=== PATIENT | female | born 1945 | race Caucasian/White ===

== ENCOUNTER 2020-10-25 16:49 | Inpatient (IN) | payer MEDICARE, SELFPAY ==
[2020-10-25 16:50] VITALS: BP 130/54; PULSE 74; RESP 20; TEMP 37; O2SAT 85; BMI 13.6
[2020-10-25 17:22] VITALS: O2SAT 95
--- NOTE | 2020-10-25 17:24 | XR_ITS ---
PROCEDURE INFORMATION: Exam: XR Chest Exam date and time: 10/25/2020 5:24 PM Age: 75 years old Clinical indication: Cough and shortness of breath; Smoker's cough; Patient HX: Cough, shortness of breath for 3 days. Smoker. ; Additional info: SOB TECHNIQUE: Imaging protocol: XR of the chest. Views: 1 view. COMPARISON: No relevant prior studies available. FINDINGS: Lungs: Hyperinflation. There is a patchy consolidation in the right base. Pleural spaces: Unremarkable. No pleural effusion. No pneumothorax. Heart/Mediastinum: Postsurgical changes in the heart and mediastinum. Bones/joints: Unremarkable. IMPRESSION: Findings suggest right basilar pneumonia
--- NOTE | 2020-10-25 17:24 | ECG_ITS ---
APPROVED REPORT Exam: Resting ECG HR:79 bpm ECG Measurements Heart Rate 79 AXES NH 114 P 83 QRSd 94 QRS 16 QT 364 T 128 QTc 417 Conclusion Normal sinus rhythm Possible Left atrial enlargement Septal infarct, age undetermined ST & T wave abnormality, consider lateral ischemia Abnormal ECG Electronically signed by : Nigel Argueta MD 10/27/2020 12:09:59
[2020-10-25 17:34] LABS: Coronavirus 19, PCR Not Detected (NotDetected); Influenza A, PCR Not Detected (NotDetected); Influenza B, PCR Not Detected (NotDetected)
[2020-10-25 17:36] LABS: Basophils % 0.3 % (0.1-2.0); Eosinophils % 0.1 % (0.1-12.0); Hematocrit 41.3 % (37.0-47.0); Hemoglobin 13.1 g/dL (12.2-16.2); Lymphocytes # 0.6 K/mm3 (0.7-4.5); Lymphocytes % 6.1 % (10-50); Mean Corpuscular HGB Conc 31.8 g/dL (31.8-35.4); Mean Corpuscular Volume 97.4 fl (81-99); Mean Platelet Volume 8.4 fl (7.4-10.4); Monocytes # 0.5 K/mm3 (0.1-1.0); Monocytes % 4.6 % (1.7-9.3); Neutrophils # 9.2 K/mm3 (1.8-7.8); Neutrophils % 88.9 % (37.0-80.0); Platelet Count 257 K/mm3 (142-424); Red Blood Count 4.24 M/mm3 (4.20-5.40); Red Cell Distribution Width 12.7 % (11.5-17.5); White Blood Count 10.4 K/mm3 (4.8-10.8)
[2020-10-25 17:38] LABS: Chloride 95 mmol/L (98-107); MANUAL DIFFERENTIAL MANUAL DIFFERENTIAL (MANUAL DIFF); Potassium 3.9 mmoL/L (3.5-5.1); Sodium 132 mmol/L (136-145)
[2020-10-25 17:40] LABS: Blood Urea Nitrogen 21 mg/dl (7-17); Creatinine Clearance Estimated 26 mL/min (50-200); Estimated Glomerular Filt Rate 120 ml/min (>60); GFR (African American) 145 ML/MIN (>60)
[2020-10-25 17:41] LABS: Alanine Aminotransferase 14 U/L (12-78); Albumin Level 3.6 g/dl (3.5-5.0); Albumin/Globulin Ratio 1.4 (1.1-1.8); Alkaline Phosphatase 65 U/L (38-126); Anion Gap 12.9 mEq/L (5-15); Aspartate Amino Transferase 23 U/L (14-36); Bilirubin,Total 0.7 mg/dl (0.2-1.3); Carbon Dioxide 28 mmol/L (22.0-30.0); Globulin 2.5 g/dL (1.3-3.2); Glucose 147 mg/dl (74-100); Total Protein,Serum 6.1 g/dl (6.3-8.2)
[2020-10-25 17:47] LABS: Lactic Acid 2.4 mmol/L (0.7-2.1)
[2020-10-25 17:56] LABS: Troponin I < 0.01 ng/ml (0.00-0.034)
[2020-10-25 18:14] LABS: Hypochromasia 1+; Lymphocytes % 6 % (10-50); Macrocytosis 1+; Neutrophils % 82 % (42-76); Platelet Estimate Normal; Total Cells Counted 100
--- NOTE | 2020-10-25 18:47 | PC.NURSE ---
SPOKE WITH PT'S FAMILY, THEY WILL ATTEMPT TO OBTAIN MEDICATION LIST
--- NOTE | 2020-10-25 19:13 | HMH.EDGENADL ---
ED Disposition Clinical Impression: Community acquired pneumonia Qualifiers: Laterality: right Lung location: lower lobe of lung Qualified Code(s): J18.9 - Pneumonia, unspecified organism Respiratory failure with hypoxia Qualifiers: Chronicity: acute Qualified Code(s): J96.01 - Acute respiratory failure with hypoxia Disposition: Admitted As Inpatient Condition on Discharge: Serious Referrals: Marnie Lilly APRN [Primary Care Provider] - - Critical Care Critical Care Time: No Attestation: On 10/25/20, the high probability of a clinically significant, sudden or life threatening deterioration of the following system(s) required my full and direct attention, intervention and personal management. The time I documented below is in addition to time spent performing reported procedures but includes the following listed in this critical care notation. Medical Decision Making - David Inquiry Pt receiving controlled substance: No Vital Signs: 10/25/20 16:50 10/25/20 17:22 Temperature 98.6 F Temperature Source Oral Pulse Rate [Radial] 74 Respiratory Rate 20 Blood Pressure [Right Arm] 130/54 L Blood Pressure Mean [Right Arm] 79 Blood Pressure Position [Right Arm] Sitting 02 Sat by Pulse Oximetry 85 L 95 Oxygen Delivery Method Room Air Nasal Cannula Oxygen Flow Rate (LPM) 3 - Lab Data Lab Results 10/25/20 16:55: SARS-CoV-2 (PCR) Not detected, Influenza A Untype (PCR) Not detected, Influenza Type B (PCR) Not detected 10/25/20 17:10: WBC 10.4, RBC 4.24, Hgb 13.1, Hct 41.3, MCV 97.4, MCH 31.0, MCHC 31.8, RDW 12.7, Plt Count 257, MPV 8.4, Neut % (Auto) 88.9 H, Lymph % (Auto) 6.1 L, Tyler % (Auto) 4.6, Eos % (Auto) 0.1, Baso % (Auto) 0.3, Neut # (Auto) 9.2 H, Lymph # (Auto) 0.6 L, Tyler # (Auto) 0.5, Eos # (Auto) 0.0, Baso # (Auto) 0.0, Total Counted 100, Neutrophils % (Manual) 82 H, Band Neutrophils % 12.0 H, Lymphocytes % (Manual) 6 L, Platelet Estimate Normal, Hypochromasia 1+, Macrocytosis 1+ 10/25/20 17:10: Sodium 132 L, Potassium 3.9, Chloride 95 L, Carbon Dioxide 28, Anion Gap 12.9, BUN 21 H, Creatinine 0.50 L, Estimated Creat Clear 26, Estimated GFR 120, Est GFR ( Amer) 145, Glucose 147 H, Calcium 9.0, Total Bilirubin 0.7, AST 23, ALT 14, Alkaline Phosphatase 65, Troponin I < 0.01, Total Protein 6.1 L, Albumin 3.6, Globulin 2.5, Albumin/Globulin Ratio 1.4 10/25/20 17:10: Lactate 2.4 H Result diagrams: 10/25/20 17:10 10/25/20 17:10 Orders (Tests/Meds): ED MEDICATIONS Generic Name Dose Route Start Last Admin Trade Name Freq PRN Reason Stop Dose Admin Ceftriaxone Sodium 1 gm/ 50 mls @ 100 mls/hr 10/25/20 19:30 10/25/20 19:34 Sodium Chloride IV 11/08/20 19:29 100 mls/hr Q24H NITZA Administration Azithromycin 500 mg/ Sodium 250 mls @ 250 mls/hr 10/25/20 19:30 Chloride IV 11/08/20 19:29 Q24H NITZA Sodium Chloride 3 ml 10/25/20 19:31 Sodium Chloride 3% 15ml Neb IH 11/24/20 19:30 ONCE PRN INDUCE SPUTUM COLLECTION ORDERS Category Date Time Status Troponin I Q3H Lab 10/25/20 20:30 Ordered Troponin I Q3H Lab 10/25/20 23:30 Ordered Urinalysis and Microscopic Stat Lab 10/25/20 17:24 Ordered Blood Culture Stat Micro 10/25/20 17:10 Received Sputum Culture & Gram Stain Stat Micro 10/25/20 19:31 Ordered - Radiology Data #1 Image(s): Chest Image Reviewed: Yes I reviewed the patient's radiology image, Yes I have reviewed radiologist's interpretation PROCEDURE INFORMATION: Exam: XR Chest Exam date and time: 10/25/2020 5:24 PM Age: 75 years old Clinical indication: Cough and shortness of breath; Smoker's cough; Patient HX: Cough, shortness of breath for 3 days. Smoker. ; Additional info: SOB TECHNIQUE: Imaging protocol: XR of the chest. Views: 1 view. COMPARISON: No relevant prior studies available. FINDINGS: Lungs: Hyperinflation. There is a patchy consolidation in the right base. Pleural spaces: Unremarkable. No pleur
--- NOTE | 2020-10-25 19:37 | PC.NURSE ---
Pagjann Canseco at this time
--- NOTE | 2020-10-25 19:59 | PC.NURSE ---
Pt's daughter called for an update, let her know that pt was admitted for PNA but wanting to sign out AMA. Dr. Child states pt can leave AMA but needs someone to pick here up. Daughter states OK thank you .
[2020-10-25 20:54] VITALS: BMI 12.0
--- NOTE | 2020-10-25 20:54 | PC.NURSE ---
PT ARRIVED TO FLOOR VIA STRETCHER FROM ED W/STAFF AT 2052
[2020-10-25 21:12] VITALS: O2SAT 94
[2020-10-25 21:14] LABS: Troponin I < 0.01 ng/ml (0.00-0.034)
[2020-10-25 21:29] LABS: Reflex Lactic Add Lactic Reflex
[2020-10-25 21:34] VITALS: BP 124/70; PULSE 73; RESP 18; TEMP 36.8; O2SAT 98
[2020-10-26] VITALS (13 sets, daily range): BP systolic 88–163; BP diastolic 50–74; PULSE 53–150; RESP 17–22; TEMP 36.6–36.8; O2SAT 90–99; BMI 12.0; BMI 12.1
--- NOTE | 2020-10-26 04:14 | PC.NURSE ---
Patient is A&Ox4. She remains on 4LNC. She ambulates to the bathroom independently. Scattered rhonchi noted throughout. No acute changes this shift. VSS, call light within reach, will continue to monitor.
--- NOTE | 2020-10-26 06:10 | ECG_ITS ---
APPROVED REPORT Exam: Resting ECG HR:162 bpm ECG Measurements Heart Rate 162 AXES QRSd 94 QRS -7 QT 284 T 198 QTc 466 Conclusion Atrial fibrillation with rapid ventricular response Septal infarct, age undetermined Marked ST abnormality, possible inferior subendocardial injury Marked ST abnormality, possible anterior subendocardial injury Abnormal ECG Electronically signed by : Nigel Argueta MD 10/27/2020 12:08:32
--- NOTE | 2020-10-26 07:25 | PC.NURSE ---
At approximately 0600 this RN received a call from the tree warden that the patient was complaining of chest pain. An EKG was obtained per protocol vitals. notified.
--- NOTE | 2020-10-26 08:09 | HMH.HP ---
*Admission Date: 10/25/20 <MahajanMerlynRina - 10/26/20 08:35> *Chief complaint: SOB; weakness <Merlyn Mahajanhy 10/26/20 08:35> *History of present illness: Ms. Hassan is a 75-year-old female who presented to [facility] with shortness of breath, weakness, and some altered mental status.Family states that she has been confused with a cough congestion shortness of breath and minimal p.o. intake. O2 sats at home were on 80%. She was using her 's oxygen as needed.She is noted to have been vaccinated against COVID-19. She had talked with her PCP and started on cefdinir 3 days ago . She did not get any better and thus her family brought her to the ER via ambulance.The emergency room She was started on Rocephin and Zithromax. Patient has a history of heart disease, Arthritis, Anxiety, Depression, and irregular heartbeat.She has been both on Cardizem and metoprolol. Chest x-ray on admission suggested right basilar pneumonia. Lactate originally was at 2.4 and is now 2. Upon awakening this morning patient describes anterior chest discomfort with shortness of breath.. She could feel her heart pounding.She was given 120 mg of Cardizem p.o. The chest pain did continue. Monitor showing atrial fib with rapid ventricular response in the 150s. She was given her metoprolol and 1/2 inch of Nitropaste was placed on her chest. She declined the Ativan because she says it knocks her out. Her chest pain did improve. <Rina Mahajan - 10/26/20 08:35> [facility] History Medical History: Reports:: Anxiety, Atrial Fibrillation, Chronic Obstructive Pulmonary Disease (COPD), Depression, Hypertension, Palpitations Denies:: Cancer, Diabetes Mellitus Type 1, Diabetes Mellitus Type 2, Gastroesophageal Reflux Disease(GERD), MRSA, Seizures <Rina Mahajan 10/26/20 08:35> *Have you ever received a pneumonia vaccine?: Yes <Rina Mahajan 10/26/20 08:35> *Have you received a flu vaccine this season?: Yes <Rina Mahajan 10/26/20 08:35> Other Medical History: Reports: Arthritis, Hypothyroidism, Thyroid Disease <Rina Mahajan 10/26/20 08:35> Other Surgeries: Yes: No Previous Surgery <Rina Mahajan 10/26/20 08:35> Amputation: No <Rina Mahajan 10/26/20 08:35> Fractures: No <Rina Mahajan 10/26/20 08:35> - *Social History Smoking Status: Current every day smoker <Rina Mahajan 10/26/20 08:35> Tobacco Type: cigarettes <Rina Mahajan 10/26/20 08:35> # Packs/Day (cigarettes): 1 <Rina Mahajan 10/26/20 08:35> Alcohol Intake: never <Rina Mahajan 10/26/20 08:35> *Occupational Status:: retired <Rina Mahajan 10/26/20 08:35> Housing: house <Merlyn Mahajanhy 10/26/20 08:35> Household Members: family <Rina Mahajan 10/26/20 08:35> *Travel in the last 8 weeks: None <Rina Mahajan 10/26/20 08:35> Family Hx:: Coronary Artery Disease <Merlyn Mahajanhy 10/26/20 08:35> Review of Systems - Constitutional Reports lack of energy, Reports weight loss <Merlyn Mahajanhy 10/26/20 08:35> - Eyes Denies change in vision <Merlyn Mahajanhy 10/26/20 08:35> - ENT Reports dry mouth, Denies dizziness, Denies ear pain, Denies headache(s), Denies nasal congestion <Merlyn Mahajanhy 10/26/20 08:35> - *Cardiovascular Reports chest pain, Reports leg pain with activity, Reports shortness of breath, Reports irregular heart rhythm, Reports rapid, pounding, or irregular heartbeat, Denies leg swelling <Merlyn Mahajanhy 10/26/20 08:35> - *Respiratory Reports cough, Reports shortness of breath, Denies coughing up blood <Merlyn Mahajanhy 10/26/20 08:35> - *Gastrointestinal Reports nausea, Reports vomiting, Denies abdominal pain, Denies constipation, Denies loose stools <Merlyn Mahajanhy 10/26/20 08:35> - *Genitourinary Denies difficulty urinating <Rina Mahajan 10/26/20 08:35> - *Musculoskeletal Reports joint pain, Reports back pain, Reports deformity, Reports muscle weakness <Rina Mahajan 10/26/20 08:35> - *Neurologic Report
--- NOTE | 2020-10-26 08:42 | ECG_ITS ---
APPROVED REPORT Exam: Resting ECG HR:60 bpm ECG Measurements Heart Rate 60 AXES ME 86 P 60 QRSd 96 QRS 6 QT 428 T 98 QTc 428 Conclusion Sinus rhythm with short ME Anteroseptal infarct, age undetermined Abnormal ECG Electronically signed by : Nigel Argueta MD 10/27/2020 12:08:00
[2020-10-26 09:20] LABS: Thyroid Stimulating Hormone 0.63 uIU/mL (0.465-4.68)
--- NOTE | 2020-10-26 09:46 | P.CONPHA_ITS ---
[facility] Pharmacy VTE Monitoring - Patient Demographics Admission date: 10/25/20 Report Date: 10/26/20 Time: 09:47 Allergies/Adverse Reactions: Patient Allergies Penicillins [PENICILLINS] Allergy (Mild, Verified 10/25/20 22:00) Rash Height: 1.6 m Weight: 30.844 kg Patient Problems: Current Active Problems Community acquired pneumonia (Acute) Respiratory failure with hypoxia (Acute) Atrial fibrillation with rapid ventricular response (Acute) Chest pain (Acute) Hypothyroidism (Acute) - VTE Risk Labs: VTE Related Lab Results Hgb 13.1 g/dL (12.2-16.2) 10/25/20 17:10 Hct 41.3 % (37.0-47.0) 10/25/20 17:10 Plt Count 257 K/mm3 (142-424) 10/25/20 17:10 BUN 21 mg/dl (7-17) H 10/25/20 17:10 Creatinine 0.50 mg/dl (0.52-1.04) L 10/25/20 17:10 Estimated Creat Clear 26 mL/min (50-200) 10/25/20 17:10 VTE Score: 2 - Prophylaxis VTE Prophylaxis Ordered?: Yes Types of VTE Prophylaxis: TEDS Knee High Location of Applied Device: Bilateral Lower Extremeties
--- NOTE | 2020-10-26 11:29 | HMH.PHAINT ---
MEDICATION RECONCILIATION COMPLETED USING PHARMACY MED LIST AND PATIENT INTERVIEW.
--- NOTE | 2020-10-26 14:33 | HMH.CNCARD ---
History of Present Illness Consult date: 10/26/20 Requesting physician: Tutu Canseco Consult reason: chest pain, atrial fibrillation Chief complaint: chest pain History of present illness: This is a 75-year-old white female who presented to [facility] with shortness of breath, weakness and altered mental status per her family. The patient has been confused lately with a cough, congestion and shortness of breath. Her p.o. intake has been very minimal and she just did not feel well. Her oxygen saturations at home were around 80% and the patient was using her 's supplemental oxygen at home. She talked to her primary care provider approximately 3 days ago and was started on cefdinir but she did not get any better and her family called EMS to have her transported to the hospital. The patient was admitted to the hospital secondary to right basilar pneumonia. This morning the patient had sudden onset of left-sided chest pain. She describes this as a pressure sensation and her heart was racing and pounding. The patient states that she just did not feel well. This radiated to her jaw and her abdomen. It was associated with shortness of breath. She was found to be in atrial fibrillation with RVR and her heart rate around 150s. The patient was given a dose of diltiazem 120 mg p.o. with no improvement in her symptoms. She was then given some metoprolol and half inch Nitropaste and her symptoms resolved. The patient states that she has had a few episodes of chest pain since then but nothing near as bad as it was. Of note she does have a history of coronary artery disease with coronary artery bypass grafting in either 2009 or 2011 per the patient's report. She does have a history of atrial fibrillation and she takes oral Cardizem and metoprolol at home. She is on Plavix due to her coronary artery disease and is on no long-term anticoagulation that she is aware of despite her [id number] score of 5. She states that she has been short of breath at home as well. She denies any lower extremity edema. She denies any nausea, vomiting, PND or orthopnea. [facility] History I have reviewed the patient's past medical history: Yes Medical History: Reports:: Anxiety, Atrial Fibrillation, Chronic Obstructive Pulmonary Disease (COPD), Coronary Artery Disease, Depression, Hypertension, Palpitations Denies:: Cancer, Cerebrovascular Accident, Diabetes Mellitus Type 1, Diabetes Mellitus Type 2, Gastroesophageal Reflux Disease(GERD), MRSA, Seizures *Have you ever received a pneumonia vaccine?: Yes *Have you received a flu vaccine this season?: Yes Other Medical History: Reports: Arthritis, Hypothyroidism, Thyroid Disease Other Surgeries: Yes: No Previous Surgery, Cardiac Catheterization, Open Heart Surgery Amputation: No Fractures: No - *Social History Smoking Status: Current every day smoker Tobacco Type: cigarettes # Packs/Day (cigarettes): 1 Alcohol Intake: never *Occupational Status:: retired Housing: house Household Members: family *Travel in the last 8 weeks: None - Psychiatric History Pschychiatric History:: Reports:: Anxiety, Depression Family Hx:: Coronary Artery Disease Meds Home Medications Medication Instructions Recorded Confirmed Type Clopidogrel Bisulfate [Plavix 75mg 75 mg PO HS 10/25/20 10/25/20 History Tab] Gabapentin 300 mg PO DIRECTED 10/25/20 10/26/20 History LORazepam [Lorazepam 1mg Tablet] 0.25 mg PO HSP PRN 10/25/20 10/26/20 History Levothyroxine Sodium 75 mcg PO DAILY 10/25/20 10/25/20 History [Levothyroxine 75mcg (0.075mg) Tab] Metoprolol Tartrate [Lopressor 100 100 mg PO BID 10/25/20 10/26/20 History mg Tablets] Oxycodone HCl/Acetaminophen 1 each PO Q6H 10/25/20 10/25/20 History [Oxycodone-Acetaminophen 10-325] dilTIAZem HCL [Cardizem ER 300mg 300 mg PO DAILY 10/25/20 10/25/20 History cap] Escitalopram Oxalate 5 mg PO DAILY 10/26/20 10/26/20 History Allergies Allerg
--- NOTE | 2020-10-26 14:42 | CA_ITS ---
APPROVED REPORT EXAM: Comprehensive 2D, Doppler, and color-flow Echocardiogram Automatic Lathe Setter: Nirmala Luong RVT Ht: 5 ft 2 in Wt: 68lbs BSA: 1.21 BP: 125/55 mmHg Indications: CP,A-FIB,PNEUMONIA,CAD,CABG,COPD,HTN,SOA TDS-PT BODY HABITUS 2D Dimensions LVOT 1.99 cm (M/F) 1.5-2.5 LA Volume 25.30 mL LA Volume Index 21.08 mL/m2 (M/F) 16-34 M-Mode Dimensions LA Diam 3.70 cm (1.9-4.0) LVDd 3.91 cm (3.5-5.7) Ao Diam 2.64 cm (2.0-3.7) LVDs 2.64 cm (3.5-5.7) IVSd 1.39 cm (0.6-1.1) PWd 0.72 cm (0.6-1.1) EF (Teich) 61.40% FS 32.50% EDV (Teich) 66.30 mL TAPSE 2.04 (<1.7) ESV (Teich) 25.60 mL LV Diastology E Decel Time 183.00 (160-240 msec) E/A Ratio 2.0 MED E' 4.40 (< 7 cm/sec) E'/MED E' Ratio 24.82 (>14) LAT E' 9.40 (<10 cm/sec) E/LAT E' Ratio 11.62 (>14) Aortic Valve AI PHT 610.00 ms AO Peak GR. 4.40 mmHg Mitral Valve MV E Max Triston. 109.00 (40-130 cm/s) MV A Velocity 55.00 (40-130 cm/s) E/A Ratio 1.99 MV Decel. Time 183.00 (160-240 ms) MV PHT 54.00 ms Pulmonary Valve PV Peak Velocity 71.00 (50-150 cm/s) Tricuspid Valve TR P. Velocity 357.00 cm/s RAP Estimate 10.00 mmHg RVSP 61.10 mmHg Left Ventricle Technically difficult study because of the patient factors and poor acoustic windows. Left atrium is mildly enlarged, left ventricle is normal size mild concentric left ventricular hypertrophy, visually estimated ejection fraction 55% with no obvious regional wall motion abnormality, endocardial surfaces are poorly visualized. Diastolic parameters are inconclusive. Right Ventricle Right atrium and right ventricle are mildly enlarged with normal contractility. Aortic Valve Aortic valve is thickened and calcified without Doppler evidence of aortic stenosis, there is mild aortic insufficiency. Mitral Valve Mitral valve leaflets are minimally thickened, there is mild mitral regurgitation. Tricuspid Valve Tricuspid valve grossly normal, there is mild tricuspid regurgitation, calculated right ventricular systolic pressure is 51 mmHg. Pulmonic Valve Pulmonic valve is poorly visualized. Great Vessels Aortic root is normal size. Inferior vena cava is normal size with normal inspiratory collapse. Pericardium No significant pericardial effusion noted. Conclusion 1. Technically difficult study, mild biatrial enlargement, normal left ventricular size, mild concentric left ventricular hypertrophy, visually estimated ejection fraction 55% with no regional wall motion abnormality, diastolic parameters are inconclusive. 2. Mildly enlarged right ventricle with normal contractility. 3. Mild aortic, mild mitral and tricuspid regurgitation, calculated right ventricular systolic pressure is 51 mmHg. 4. No significant pericardial effusion noted, inferior vena cava is normal size with normal inspiratory collapse. Electronically signed by : Apolinar Mcelroy MD 10/27/2020 06:23:37
--- NOTE | 2020-10-26 15:26 | CT_ITS ---
PROCEDURE INFORMATION: Exam: CTA Chest With Contrast Exam date and time: 10/26/2020 3:26 PM Age: 75 years old Clinical indication: Patient HX: Chest pain, SOA TECHNIQUE: Imaging protocol: Computed tomographic angiography of the chest with contrast. 3D rendering (Not supervised by radiologist): MIP and/or 3D reconstructed images were created by the technologist. Radiation optimization: All CT scans at this facility use at least one of these dose optimization techniques: automated exposure control; mA and/or kV adjustment per patient size (includes targeted exams where dose is matched to clinical indication); or iterative reconstruction. Contrast material: ISOVUE 370; Contrast volume: 70 ml; Contrast route: INTRAVENOUS (IV); COMPARISON: CR XR CHEST PORTABLE 10/25/2020 5:42 PM FINDINGS: Pulmonary arteries: Normal. No pulmonary emboli. Aorta: The aorta demonstrates moderate atherosclerotic calcification. No acute aortic pathology. Lungs: Patchy and tree-in-bud airspace opacities in the right upper lobe. Ground-glass and patchy airspace opacities in the right middle lobe. Large airspace consolidation with air bronchograms in the right lower lobe. Left lower lobe is clear. Left upper lobe is clear. Remainder of the airways are patent. Pleural spaces: Unremarkable. No pneumothorax. No pleural effusion. Heart: The heart is mildly enlarged. Concern for mild left ventricular hypertrophy. There is severe atherosclerotic calcification of the coronary arteries. Prior CABG. No pericardial thickening or effusion. Mediastinal space: Air and fluid-filled patulous esophagus. Small amount of debris within the right mainstem bronchus, left mainstem bronchus, and trachea. Lymph nodes: Unremarkable. No enlarged lymph nodes. Liver: 1 cm hypodense lesion in the right hepatic lobe on image 108 series 3 is incompletely characterized in this examination. Consider ultrasound follow-up in a nonemergent setting. Bones/joints: There are sternal wires consistent with previous sternotomy incision. No acute skeletal abnormality or aggressive osseous lesion. Soft tissues: Unremarkable. Other findings: The visualized intra-abdominal structures demonstrate no acute findings. IMPRESSION: 1. Moderate to severe acute airspace disease throughout the right lung, worse in the right lower lobe. This is most compatible with infectious pneumonia. 2. Small amount of debris within the central airways, a component of aspiration should also be considered. Although, I would like to note that I do not see any mucous plugging in the distal segmental and subsegmental airways. 3. No other acute thoracic pathology is otherwise appreciated.
[2020-10-26 15:28] LABS: Troponin I 0.16 ng/ml (0.00-0.034)
--- NOTE | 2020-10-26 16:24 | HMH.ITSTN ---
went to get patient at approx 1600; nurse needed to start a new iv. unable to obtain iv while tech waited in pt room. rn to call when iv is accessed
--- NOTE | 2020-10-26 18:18 | PC.NURSE ---
Pt has been somewhat uncooperative this shift. Pt refuses certain PO medications and occasionally refuses to wear her O2. A&O X4. No complaints of pain or SOA. Pt is currently receiving O2 via NC @4 LPM with sats. >90%. Lung sounds reveal expiratory rhonchi. No edema noted. Skin is C/D/I. Telemetry reveals NSR. Pt ambulates with stand-by assistance to/from the bathroom and throughout the room. Pt voids clear, yellow urine without issue. No BM this shift. Pt refused to sit up in the recliner today and also refused to change her pajama bottoms after an episode of urinary incontinence. Appetite is poor and pt has refused all meals. Pt has been instructed to provide a sputum sample and a specimen cup is at bedside. 22 G peripheral IV in the LT forearm is patent and SL. 20 G peripheral IV in the RT AC is patent and infusing NS @ 100 ML/HR. VSS. Call light within reach. Will continue to monitor.
[2020-10-27] VITALS (45 sets, daily range): BP systolic 128–180; BP diastolic 59–120; PULSE 58–160; RESP 16–22; TEMP 36.5–37.1; O2SAT 75–99
--- NOTE | 2020-10-27 | IR_ITS ---
APPROVED REPORT Patient Location: Inpatient Registered Nurse: WHITNEY Coy RT (R) PROCEDURES Left heart catheterization Left ventriculogram Selective coronary angiogram Selective engagement of saphenous vein graft to circumflex artery Selective engagement of the saphenous vein graft to the right coronary Drug-eluting stent deployment to the distal dominant right coronary Drug-eluting stent deployment to the proximal mid and distal circumflex artery INDICATION Acute non-ST elevation myocardial infarction, Coronary disease, History of coronary bypass surgery Informed consent was obtained prior to the procedure. COMPLICATIONS None Estimated Blood Loss: Less than 10 mls TECHNIQUE One percent lidocaine used to anesthetize the right groin. The right femoral artery was accessed via the Seldinger technique and a 5 Swiss sheath was placed in the right femoral artery. A JL 4, JR4 catheter were used to perform left heart catheterization, left ventriculogram selective coronary angiography as well as selective engagement of the 2 vein grafts. Patient had a profoundly abnormal and tortuous transverse aorta therefore I was unable to cannulate the left subclavian artery. Because of the severe two-vessel disease involving the circumflex artery and the habemat[place] right coronary artery it was decided continual probing and trying to engage the left internal mammary artery would increase patient's likelihood for complications therefore this portion of the diagnostic procedure was abandoned. Because patient weighed slightly greater than 60 pounds it was felt a left radial approach to access a left internal mammary graft which is most likely patent would not be clinically appropriate at this time. Because of the critical disease in the habematolel vessels with occluded vein grafts it was decided to proceed with percutaneous intervention. The 4 Swiss sheath was exchanged for a 6 Swiss sheath and therapeutic heparin was administered giving a therapeutic ACT. A JR 3.5 guide catheter was used to intubate the right coronary artery and a Choice PT wire was placed distally. A 3 mm x 12 mm resolute Carson balloon drug-eluting stent was deployed at 20 payton reducing the critical stenosis to 0%. A mini exchange technique was performed and a JL4 guide catheter was placed in the left main artery where the same Choice PT wire was placed into the circumflex artery. A 2.5 x 38 mm resolute Denis stent was deployed at 20 payton reducing the critical disease to 0%. An additional 2.25 x 26 mm resolute Denis stent was then placed distal to the first stent yet still overlapping it and deployed at 24 patyon reducing the critical disease to 0%. The balloon was brought back between the 2 stents and deployed at 28 payton to completely reduce the stenosis. After achieving excellent angiograph results the apparatus was removed the patient was transferred to the postop holding in stable condition for sheath removal ANGIOGRAPHIC RESULTS The left main artery Normal The left anterior descending artery Is proximally patent and then occluded in mid vessel. A second diagonal artery is less than 2 mm in diameter and has a proximal 90% stenosis and a distal 90% stenosis The circumflex artery Is a nondominant yet still large vessel with stents in the proximal mid and distal segment which has diffuse critical greater than 90% in-stent restenosis. The right coronary artery Is a large dominant vessel and has proximal patency of 20 to 30% with a focal 80% concentric in-stent restenotic lesion. Distally the right coronary artery is patent with a 30% stenosis just proximal to the bifurcation of the PDA and PLVB The [place] ventriculogram reveals Normal 65% The left ventricula
--- NOTE | 2020-10-27 05:15 | ECG_ITS ---
APPROVED REPORT Exam: Resting ECG HR:164 bpm ECG Measurements Heart Rate 164 AXES MO 112 P QRSd 98 QRS -14 QT 314 T 239 QTc 518 Conclusion Sinus tachycardia Septal infarct, age undetermined Marked ST abnormality, possible inferior subendocardial injury Marked ST abnormality, possible anterolateral subendocardial injury Abnormal ECG Electronically signed by : Nigel Argueta MD 10/28/2020 17:44:58
--- NOTE | 2020-10-27 05:53 | PC.NURSE ---
Addendum entered by Mayra Short RN 10/27/20 06:13: Continuation: VS taken at 0512 BP 180/120 manual, HR 161, RR 21, SpO2 97% on 4LPM NC. Per Dr. Francis, give pt's am meds early: Metoprolol PO, Cardizem PO, Nitro TP, and start Cardizem gtt and give Bolus. Change pt to Step-down status. 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 Original Note: @0506 This RN was notified that pt was requesting a new gown and pain pill. As this collected the med & gown, I was then told her HR is 160's by WC. Immediately assessed pt and she is c/o heart pounding and discomfort. Stating, I need my pain pill and maybe 1/2 of my heart pill . EKG obtained and showed Afib with RVR, 2nd obtained d/t tremors and read sinus tach. Dr. Francis notified of the above information and gave hx of pt having a similar episode yesterday am, requiring Metoprolol 100mg, Cardizem 300mg, Nitro 0.2mg& cardiac consult.
--- NOTE | 2020-10-27 07:15 | PC.NURSE ---
Pt converted back to NSR. Shantanu Mahajan on floor and stated to hold off on Cardizem gtt. Breakfast tray pulled from pt d/t heart cath going to be performed this am. This was passed onto oncoming shift nurse, Reinaldo Ozuna RN.
--- NOTE | 2020-10-27 08:09 | HMH.ACPN2 ---
<Rina Mahajan - Last Filed: 10/27/20 08:09> Internal Medicine - PN: Subj *Date: 10/27/20 *Time: 08:09 Interval history: Patient awakened for exam. She states she is has some intermittent chest discomfort. She feels her breathing is better. She is eating very little. She was seen by cardiology yesterday and note appreciated. She had a CTA of the lungs which was negative for PE. It did show the pneumonia. She is n.p.o. for cardiac cath this morning. Patient did convert to normal sinus rhythm and remains in sinus rhythm. Exam Vital signs and Labs for Last 24 Hours: Temp Pulse Resp BP Pulse Ox 98.7 F 90 21 180/120 H 93 L 10/27/20 04:00 10/27/20 06:08 10/27/20 05:12 10/27/20 05:12 10/27/20 06:08 Laboratory Results - last 24 hr 10/25/20 23:59: TSH 0.63 10/26/20 15:00: Troponin I 0.16 H I & O for Last 24 hours: Intake & Output 10/24/20 10/25/20 10/26/20 10/27/20 11:59 11:59 11:59 11:59 Intake Total 1680 / 1680 1979 / 1979 Output Total 200 / 200 Balance 1680 / 1680 1780 / 1780 Weight 68 lb 5.493 oz - Constitutional no acute distress, thin, cooperative Comments: She does assist with exam. - *Routine Respiratory Exam Present: crackles (Bilateral greater on the right.), diminished air movement (Mainly on the right.) Assessment and Plan (1) Community acquired pneumonia Status: Acute Qualifiers: Laterality: right Lung location: lower lobe of lung Qualified Code(s): J18.9 - Pneumonia, unspecified organism Category: Medical Code(s): J18.9 - Pneumonia, unspecified organism (2) Atrial fibrillation with rapid ventricular response Status: Acute Category: Medical Code(s): I48.91 - Unspecified atrial fibrillation (3) Respiratory failure with hypoxia Status: Acute Qualifiers: Chronicity: acute Qualified Code(s): J96.01 - Acute respiratory failure with hypoxia Category: Medical Code(s): J96.91 - Respiratory failure, unspecified with hypoxia (4) Hypothyroidism Status: Acute Category: Medical Code(s): E03.9 - Hypothyroidism, unspecified (5) CAD (coronary artery disease) Status: Chronic Category: Medical Code(s): I25.10 - Atherosclerotic heart disease of [place] coronary artery without angina pectoris (6) Hx of CABG Status: Chronic Category: Surgical Code(s): Z95.1 - Presence of aortocoronary bypass graft (7) HTN (hypertension) Status: Chronic Qualifiers: Hypertension type: primary hypertension Qualified Code(s): I10 - Essential (primary) hypertension Category: Medical Code(s): I10 - Essential (primary) hypertension (8) Chest pain Status: Acute Category: Medical Code(s): R07.9 - Chest pain, unspecified (9) COPD (chronic obstructive pulmonary disease) Status: Acute Category: Medical Code(s): J44.9 - Chronic obstructive pulmonary disease, unspecified - Assessment and plan all Dx Assessment and Plan for all problems:: As per cardio cardiology with negative CTA exam will have a cardiac cath today. <Tutu Canseco - Last Filed: 10/27/20 21:14> Internal Medicine - PN: Subj *Date: 10/27/20 *Time: 21:10 Exam Vital signs and Labs for Last 24 Hours: Temp Pulse Resp BP Pulse Ox 98.7 F 87 16 130/62 95 10/27/20 19:49 10/27/20 19:49 10/27/20 19:49 10/27/20 19:49 10/27/20 19:49 Laboratory Results - last 24 hr 10/27/20 07:55: Sodium 131 L, Potassium 2.5 L* D, Chloride 93 L, Carbon Dioxide 27, Anion Gap 13.5, BUN 7 D, Creatinine 0.30 L D, Estimated Creat Clear 23, Estimated GFR 216, Est GFR ( Amer) 262 D, Glucose 81, Calcium 8.4, Triglycerides 158 H, Cholesterol 142, LDL Cholesterol Direct 74.35 L, VLDL Cholesterol 32, HDL Cholesterol 30 L, Cholesterol/HDL Ratio 4.7 H 10/27/20 07:58: WBC 9.2, RBC 4.02 L, Hgb 12.4, Hct 38.7, MCV 96.3, MCH 30.9, MCHC 32.1, RDW 12.8, Plt Count 340 D, MPV 7.9, Neut % (Auto) 87.3 H, Lymph % (Auto) 7.5 L, Cat[place] % (Auto) 4.5, Eos
[2020-10-27 08:11] LABS: Basophils % 0.4 % (0.1-2.0); Eosinophils % 0.4 % (0.1-12.0); Hematocrit 38.7 % (37.0-47.0); Hemoglobin 12.4 g/dL (12.2-16.2); Lymphocytes # 0.7 K/mm3 (0.7-4.5); Lymphocytes % 7.5 % (10-50); Mean Corpuscular HGB Conc 32.1 g/dL (31.8-35.4); Mean Corpuscular Hemoglobin 30.9 pg (27.0-31.2); Mean Corpuscular Volume 96.3 fl (81-99); Mean Platelet Volume 7.9 fl (7.4-10.4); Monocytes # 0.4 K/mm3 (0.1-1.0); Monocytes % 4.5 % (1.7-9.3); Neutrophils # 8.1 K/mm3 (1.8-7.8); Neutrophils % 87.3 % (37.0-80.0); Platelet Count 340 K/mm3 (142-424); Red Blood Count 4.02 M/mm3 (4.20-5.40); Red Cell Distribution Width 12.8 % (11.5-17.5); White Blood Count 9.2 K/mm3 (4.8-10.8)
[2020-10-27 08:13] LABS: MANUAL DIFFERENTIAL MANUAL DIFFERENTIAL (MANUAL DIFF)
[2020-10-27 08:23] LABS: Chloride 93 mmol/L (98-107)
[2020-10-27 08:24] LABS: Sodium 131 mmol/L (136-145)
[2020-10-27 08:26] LABS: Blood Urea Nitrogen 7 mg/dl (7-17); Creatinine Clearance Estimated 23 mL/min (50-200); Estimated Glomerular Filt Rate 216 ml/min (>60); GFR (African American) 262 ML/MIN (>60)
[2020-10-27 08:27] LABS: Anion Gap 13.5 mEq/L (5-15); Calcium 8.4 mg/dl (8.4-10.2); Carbon Dioxide 27 mmol/L (22.0-30.0); Chol/HDL Ratio 4.7 (1-3.5); Cholesterol 142 mg/dl (140-200); Glucose 81 mg/dl (74-100); HDL Cholesterol 30 mg/dl (40-60); Triglycerides 158 mg/dl (30-150); VLDL Cholesterol 32 mg/dL (0-40)
[2020-10-27 08:31] LABS: Lymphocytes % 6 % (10-50); Monocytes % 3 % (2-9); Neutrophils % 90 % (42-76); Platelet Estimate Normal; RBC Morphology Normal; Total Cells Counted 100
[2020-10-27 08:31] LABS: Potassium 2.5 mmoL/L (3.5-5.1)
[2020-10-27 08:38] LABS: Direct LDL Cholesterol 74.35 mg/dL (100-129)
--- NOTE | 2020-10-27 10:38 | HMH.PNCARD ---
Subjective Date: 10/27/20 Time: 08:30 Principal diagnosis: angina Interval history: This is a 75-year-old white female who was admitted to [facility] with shortness of breath, weakness and altered mental status. The patient had an episode yesterday where she had sudden onset of chest pain and her heart racing. The patient described this as a pressure sensation and she just did not feel well. It radiated to her jaw and abdomen and was associated with shortness of breath. She was found to be in atrial fibrillation with RVR and her heart rate was around 150. The patient did convert back to sinus rhythm and had improvement in her symptoms when she was given metoprolol and half inch Nitropaste. Since that time the patient has continued to have chest pain intermittently. She describes this as a pressure sensation in the left side of her chest and it is still radiating to her jaw and abdomen. Is associated with shortness of breath, nausea, vomiting and diaphoresis per the patient's report. She states that she just does not feel well. She does have an elevated troponin at 0.16 which is consistent with a non-ST elevation myocardial infarction. The patient reported having coronary artery bypass grafting in either 2009 or 2011 and has not really been seen by cardiology since that time. She denies any fever, chills, diarrhea, PND or orthopnea. Exam Vital signs and Labs for Last 24 Hours: Temp Pulse Resp BP Pulse Ox 98.7 F 77 21 180/120 H 75 L 10/27/20 04:00 10/27/20 09:30 10/27/20 05:12 10/27/20 05:12 10/27/20 09:30 Laboratory Results - last 24 hr 10/26/20 15:00: Troponin I 0.16 H 10/27/20 07:55: Sodium 131 L, Potassium 2.5 L* D, Chloride 93 L, Carbon Dioxide 27, Anion Gap 13.5, BUN 7 D, Creatinine 0.30 L D, Estimated Creat Clear 23, Estimated GFR 216, Est GFR ( Amer) 262 D, Glucose 81, Calcium 8.4, Triglycerides 158 H, Cholesterol 142, LDL Cholesterol Direct 74.35 L, VLDL Cholesterol 32, HDL Cholesterol 30 L, Cholesterol/HDL Ratio 4.7 H 10/27/20 07:58: WBC 9.2, RBC 4.02 L, Hgb 12.4, Hct 38.7, MCV 96.3, MCH 30.9, MCHC 32.1, RDW 12.8, Plt Count 340 D, MPV 7.9, Neut % (Auto) 87.3 H, Lymph % (Auto) 7.5 L, Banner % (Auto) 4.5, Eos % (Auto) 0.4, Baso % (Auto) 0.4, Neut # (Auto) 8.1 H, Lymph # (Auto) 0.7, Banner # (Auto) 0.4, Eos # (Auto) 0.0, Baso # (Auto) 0.0, Total Counted 100, Neutrophils % (Manual) 90 H, Band Neutrophils % 1.0, Lymphocytes % (Manual) 6 L, Monocytes % (Manual) 3, Platelet Estimate Normal, RBC Morphology Normal I & O for Last 24 hours: Intake & Output 10/24/20 10/25/20 10/26/20 10/27/20 23:59 23:59 23:59 23:59 Intake Total 1500 / 1500 2160 / 2160 Output Total 200 / 200 Balance 1500 / 1500 2159 / 1959 -200 / -200 Weight 68 lb 68 lb 5.493 oz Narrative: Telemetry strip shows sinus rhythm with a rate of 67. Echo shows: 1. Technically difficult study, mild biatrial enlargement, normal left ventricular size, mild concentric left ventricular hypertrophy, visually estimated ejection fraction 55% with no regional wall motion abnormality, diastolic parameters are inconclusive. 2. Mildly enlarged right ventricle with normal contractility. 3. Mild aortic, mild mitral and tricuspid regurgitation, calculated right ventricular systolic pressure is 51 mmHg. 4. No significant pericardial effusion noted, inferior vena cava is normal size with normal inspiratory collapse. CTA chest shows: 1. Moderate to severe acute airspace disease throughout the right lung, worse in the right lower lobe. This is most compatible with infectious pneumonia. 2. Small amount of debris within the central airways, a component of aspiration should also be considered. Although, I would like to note that I do not see any mucous plugging in the distal segmental and subsegmental airways. 3. No other acute thoracic pathology is otherwise appreciated. - Constitutional no acute distress, thin - *Routine
--- NOTE | 2020-10-27 13:56 | SUR.OPER ---
PT TOOK PLAVIX 75MG AT THIS TIME. ZHANE STILES RN REPORTED THAT PT REFUSED THIS MEDICATION EARLIER W/ JOYA FERRARI. MAR WOULD NOT ALLOW FOR ME TO CHART THIS MEDICATION.
--- NOTE | 2020-10-27 18:02 | PC.NURSE ---
pt arrived back to floor from lab aid at 1615, femoral cath site with dressing in place, C/D/I, soft to touch, patient has not complained of pain and has remained flat, educated patient on the need to lay flat until 184
[2020-10-28] VITALS (34 sets, daily range): BP systolic 83–178; BP diastolic 42–109; PULSE 60–159; RESP 12–20; TEMP 36.6–37.1; O2SAT 87–100
--- NOTE | 2020-10-28 04:46 | PC.NURSE ---
No acute changes. Pt has slept well tonight. C/O some discomfort early in shift. Medicated per apr. DSG to (R) femoral cath site is C/D/I. VSS. No other concerns at this time. Will continue to monitor.
[2020-10-28 07:24] LABS: Basophils % 0.4 % (0.1-2.0); Eosinophils % 0.4 % (0.1-12.0); Hematocrit 40.6 % (37.0-47.0); Lymphocytes % 10.9 % (10-50); Mean Corpuscular Volume 96.8 fl (81-99); Monocytes # 0.6 K/mm3 (0.1-1.0); Neutrophils % 81.2 % (37.0-80.0); Platelet Count 432 K/mm3 (142-424); Red Cell Distribution Width 12.8 % (11.5-17.5); White Blood Count 8.6 K/mm3 (4.8-10.8)
[2020-10-28 08:01] LABS: Anion Gap 16.3 mEq/L (5-15); Blood Urea Nitrogen 5 mg/dl (7-17); Calcium 8.6 mg/dl (8.4-10.2); Carbon Dioxide 22 mmol/L (22.0-30.0); Chloride 96 mmol/L (98-107); Creatinine Clearance Estimated 23 mL/min (50-200); Estimated Glomerular Filt Rate 216 ml/min (>60); GFR (African American) 262 ML/MIN (>60); Glucose 59 mg/dl (74-100); Potassium 3.3 mmoL/L (3.5-5.1); Sodium 131 mmol/L (136-145)
--- NOTE | 2020-10-28 08:29 | HMH.ACPN2 ---
<Rina Mahajan - Last Filed: 10/28/20 08:29> Internal Medicine - PN: Subj *Date: 10/28/20 *Time: 08:29 Interval history: Patient thinks she is better today. She denies chest pain and feels her breathing is okay. She did have a cardiac cath with the following results yesterday: IMPRESSION Critical two-vessel coronary disease involving [place] circumflex artery and [place] right coronary as described above Successful revascularization of the [place] circumflex artery critical disease reduced to 0% with 2 contiguous drug-eluting stents Successful revascularization of the [place] dominant right coronary critical disease reduced to 0% with 1 drug-eluting stent Normal ejection fraction Normal left ventricular end-diastolic pressure Incomplete diagnostic angiogram where the left internal mammary artery and left subclavian artery was not assessed angiographically but presumed to be open based on the severe two-vessel disease and normal LV function PLAN 1. Dual antiplatelet therapy 2. Should patient continue with recalcitrant angina pectoris she would require angiography most likely from the left radial artery. Patient is extremely small and this would be a difficult if not impossible procedure therefore recommend an extremely high threshold prior to proceeding with left radial access angiography 3. Cardiac rehabilitation 4. Avoidance of tobacco products 5. Risk factor modification She would like to go home today. She is able to eat a little bit but is not hungry. She especially likes her coffee. Exam Vital signs and Labs for Last 24 Hours: Temp Pulse Resp BP Pulse Ox 98.2 F 89 19 161/75 H 93 L 10/28/20 07:17 10/28/20 07:17 10/28/20 07:17 10/28/20 07:17 10/28/20 07:17 Laboratory Results - last 24 hr 10/27/20 07:55: Sodium 131 L, Potassium 2.5 L* D, Chloride 93 L, Carbon Dioxide 27, Anion Gap 13.5, BUN 7 D, Creatinine 0.30 L D, Estimated Creat Clear 23, Estimated GFR 216, Est GFR ( Amer) 262 D, Glucose 81, Calcium 8.4, Triglycerides 158 H, Cholesterol 142, LDL Cholesterol Direct 74.35 L, VLDL Cholesterol 32, HDL Cholesterol 30 L, Cholesterol/HDL Ratio 4.7 H 10/27/20 07:58: Total Counted 100, Neutrophils % (Manual) 90 H, Band Neutrophils % 1.0, Lymphocytes % (Manual) 6 L, Monocytes % (Manual) 3, Platelet Estimate Normal, RBC Morphology Normal 10/28/20 06:54: WBC 8.6, RBC 4.20, Hgb 13.0, Hct 40.6, MCV 96.8, MCH 31.0, MCHC 32.0, RDW 12.8, Plt Count 432 H D, MPV 8.0, Neut % (Auto) 81.2 H, Lymph % (Auto) 10.9, Nye % (Auto) 7.0, Eos % (Auto) 0.4, Baso % (Auto) 0.4, Neut # (Auto) 7.0, Lymph # (Auto) 1.0, [place]ye # (Auto) 0.6, Eos # (Auto) 0.0, Baso # (Auto) 0.0 10/28/20 06:54: Sodium 131 L, Potassium 3.3 L D, Chloride 96 L, Carbon Dioxide 22, Anion Gap 16.3 H, BUN 5 L D, Creatinine 0.30 L, Estimated Creat Clear 23, Estimated GFR 216, Est GFR ( Amer) 262, Glucose 59 L D, Calcium 8.6 I & O for Last 24 hours: Intake & Output 10/25/20 10/26/20 10/27/20 10/28/20 11:59 11:59 11:59 11:59 Intake Total 1680 / 1680 1979 / 1979 180 / 180 Output Total 200 / 200 200 / 200 Balance 1680 / 1680 1780 / 1780 -20 / -20 Weight 68 lb 5.493 oz Microbiology Reports for the Last 24 Hours: Microbiology 10/25/20 17:10 Blood Blood Culture - Preliminary NO GROWTH AFTER 48 HOURS 10/25/20 17:10 Blood Blood Culture - Preliminary NO GROWTH AFTER 48 HOURS - Constitutional no acute distress, thin - *Routine Respiratory Exam Present: crackles (On the right) - *Routine Cardiovascular Exam Present: RRR Comments: Monitor showing sinus rhythm in the 90s - *Routine Abdominal Exam Present: soft, normoactive bowel sounds. Absent: tenderness - *Routine Extremities Exam Absent: edema, calf tenderness - *Routine Neurological Exam Present: alert, oriented X3 Assessment and Plan (1) Non-STEMI (non-ST elevated myocardial infarction) Status:
--- NOTE | 2020-10-28 09:40 | PC.NURSE ---
sputum sent to lab
--- NOTE | 2020-10-28 09:55 | DIET.NUTRFU ---
Pt with severe protein calorie malnutrition rt COPD with loss 12% BW past 6m, possibly more weight and/or shorter time frame but pt is unsure. She has eaten very poorly t/o stay, she states this is because she has not been able to sit up to eat as well as minor swallowing difficulty. Moderate soft modifications made and BID protein shakes of pt's preference on diet order. Please help sit up for meals and encourage/cue at mealtimes as well as encourage additional snacks/supplements t/o day. She has been provided diet edu/counseling for malnutrition and encouraged to reach out with questions/concerns post dc.
--- NOTE | 2020-10-28 10:12 | HMH.PNCARD ---
Subjective Date: 10/28/20 Time: 10:40 Principal diagnosis: angina Interval history: This is a 75-year-old white female who was admitted to the hospital with shortness of breath, weakness and altered mental status. She then went into atrial fibrillation with RVR and was also having chest pain and pressure. The patient had elevated troponin consistent with a non-ST elevation myocardial infarction. The patient underwent left cardiac catheterization yesterday and had stenting to critical two-vessel coronary artery disease involving the [place] circumflex artery and right coronary artery. She had 2 stents placed to the [place] circumflex artery and 1 stent placed to the right coronary artery. The patient tolerated the procedure well. She did have incomplete diagnostic angiogram where the left internal mammary artery and left subclavian artery was not assessed but presumed to be open based on severe two-vessel disease and normal LV function. This morning she denies any chest pain or pressure. She denies any shortness of breath or edema. She denies any fever, chills,, diarrhea, PND or orthopnea. While in standing in the room the patient does have sudden onset of palpitations and racing of the heart. Prior to this the patient had nausea and vomiting. She states that anytime she takes her pills she feels like she has to vomit. She did start vomiting today. She went into atrial fibrillation with RVR. Her heart rate is around 180 while she is actively trying to vomit. It does settle down to about 150 when she is not vomiting. Of note the patient did refuse some of her medications yesterday because of the nausea that she states the medicines cause her. Today she is stating that she will just take her medications and her heart rate will be fine. At first she states that she does not want any IV medications to help her heart rate and she just wants to go home and she will be fine. I had a long discussion with the patient about her abnormal heart rhythm and allowing us to give her IV medications to slow her heart rate down. The patient finally does agree to take the medications. Exam Vital signs and Labs for Last 24 Hours: Temp Pulse Resp BP Pulse Ox 98.2 F 89 19 161/75 H 93 L 10/28/20 07:17 10/28/20 07:17 10/28/20 07:17 10/28/20 07:17 10/28/20 07:17 Laboratory Results - last 24 hr 10/28/20 06:54: WBC 8.6, RBC 4.20, Hgb 13.0, Hct 40.6, MCV 96.8, MCH 31.0, MCHC 32.0, RDW 12.8, Plt Count 432 H D, MPV 8.0, Neut % (Auto) 81.2 H, Lymph % (Auto) 10.9, [place] % (Auto) 7.0, Eos % (Auto) 0.4, Baso % (Auto) 0.4, Neut # (Auto) 7.0, Lymph # (Auto) 1.0, [place] # (Auto) 0.6, Eos # (Auto) 0.0, Baso # (Auto) 0.0 10/28/20 06:54: Sodium 131 L, Potassium 3.3 L D, Chloride 96 L, Carbon Dioxide 22, Anion Gap 16.3 H, BUN 5 L D, Creatinine 0.30 L, Estimated Creat Clear 23, Estimated GFR 216, Est GFR ( Amer) 262, Glucose 59 L D, Calcium 8.6 I & O for Last 24 hours: Intake & Output 10/25/20 10/26/20 10/27/20 10/28/20 23:59 23:59 23:59 23:59 Intake Total 1500 / 1500 2160 / 2160 60 / 60 120 / 120 Output Total 200 / 300 200 / 200 Balance 1500 / 1500 2159 / 1959 -140 / -240 -80 / -80 Weight 68 lb 68 lb 5.493 oz Microbiology Reports for the Last 24 Hours: Microbiology 10/25/20 17:10 Blood Blood Culture - Preliminary NO GROWTH AFTER 48 HOURS 10/25/20 17:10 Blood Blood Culture - Preliminary NO GROWTH AFTER 48 HOURS Narrative: EKG is atrial fibrillation with a rate of [address] and T wave abnormalities and old anterior CO pattern. - Constitutional no acute distress, thin - *Routine HEENT Exam Head: Present: normocephalic, atraumatic Eye: Present: EOMI, PERRL ENT: Present: mucous membranes moist - *Routine Neck Exam Present: supple, full ROM, normal carotid upstroke. Absent: JVD, carotid bruit, lymphadenopathy - *Routine Respiratory Exam Present: CTA bilaterally
--- NOTE | 2020-10-28 10:37 | SW/DCPLANNER ---
Addendum entered by Beatrice Lubbock 11/04/20 10:45: Shantal with [facility] has stated that patient information/order has been reviewed and services will begin at end of the week. I also spoke with Soraya at [facility] and she has stated that home O2 and portable will be delivered and set up at home. Addendum entered by Beatrice Lubbock 11/04/20 09:50: This patient has decided to discharge home instead of going to [facility]. I have informed Abby ashanti Dutch Jai that patient has refused placement. Patient stated that she is not sure about home health services but is agreeable for me to fax information to [facility] and she will decide later if she wants services or not. Patient information/order has also been faxed to [facility] for home O2/portable. Patient will discharge home later today. Addendum entered by Beatrice Lubbock 11/03/20 12:33: Abby Vergara has stated that she will start a precert for this patient. I will continue to follow up with Abby, patient and MD. Patient will need an additional COVID swab prior to discharging. Addendum entered by Beatrice Lubbock 11/03/20 09:50: Patient information has been faxed to Abby Vergara. Addendum entered by Beatrice Lubbock 11/03/20 08:01: I spoke with patient again this AM regarding discharge plans. Patient stated that she resides at home with her childhood friends. I explained placement options to patient she appears to be more interested. Patient did express an interest in [facility]. I informed this patient that due to refusal of most PT sessions her [employer]/Med[employer]are may deny. Patient stated that she will be more willing to work with therapy today. I will follow up with patient regarding placement after PT therapy this AM. I will also follow up with Abby at [facility] regarding bed availability. Original Note: I spoke with this patient during AM rounds: patient stated that she resides at home with people that she pays to help/stay with her. Patient stated that she does well at home and intends on returning home in hopes for discharging today. Patient does have home O2 PRN . I attempted to contact patients sister (Valentina) listed in her chart this AM with no answer. Patient will have a PT/OT evaluation this AM then I will follow up with her regarding discharge plans.
--- NOTE | 2020-10-28 10:41 | HMH.PTEV ---
Physical Therapy Evaluation Rehab PT IP Evaluation Start: 10/28/20 08:22 Freq: ONCE Status: Active Protocol: Document 10/28/20 10:29 [facility]RA[facility] (Rec: 10/28/20 10:40 REDDY [id number]) Subjective/History History History Ms. Hassan is a 75-year-old female who presented to [facility] with shortness of breath, weakness, and some altered mental status.Family states that she has been confused with a cough congestion shortness of breath and minimal p.o. intake. O2 sats at home were on 80%. She was using her 's oxygen as needed.She is noted to have been vaccinated against COVID- 19. She had talked with her PCP and started on cefdinir 3 days ago . She did not get any better and thus her family brought her to the ER via ambulance.The emergency room She was started on Rocephin and Zithromax. - copied from H &P Subjective Subjective Pt reports c/o nausea and vomiting. - Pt is resitant to therapy - she did not wish to get OOB, stand or ambulate - pt still had not taken her medicine but was complaining that they haven't given my medicine yet when pt was showed medicine cup infront of her she reports she doesn't know what they are and isn't gonna take them - Rehab PT IP Eval Objective Appearance Patient Behavior Belligerent,Resistive to Care Patient Orientation Place,Name,Birthday,Year Difficulty following instructions none Speech Pattern Appropriate Ambulation Patient Able to Ambulate Yes Ambulation Observation IP General Gait Pattern Observation Shuffling Step Ambulation Distance (feet) 1 Ambulation Assistive Device None Ambulation Ability Contact Guard/Hand Hold Balance Ability to Arise Able, uses arms to help Sitting Balance Steady, safe Standing Balance Narrow st
--- NOTE | 2020-10-28 10:53 | ECG_ITS ---
APPROVED REPORT Exam: Resting ECG HR:180 bpm ECG Measurements Heart Rate 180 AXES QRSd 98 QRS -7 QT 256 T 209 QTc 443 Conclusion Atrial fibrillation with rapid ventricular response with premature ventricular or aberrantly conducted complexes Possible Anterior infarct, age undetermined Marked ST abnormality, possible inferior subendocardial injury Abnormal ECG Electronically signed by : Niegl Argueta MD 10/28/2020 17:43:13
--- NOTE | 2020-10-28 10:57 | HMH.OTEV ---
OT Inpatient Evaluation Rehab OT IP Evaluation Start: 10/28/20 08:23 Freq: ONCE Status: Complete Protocol: Document 10/28/20 10:43 [facility] (Rec: 10/28/20 10:56 [facility] [id number]) Rehab OT IP Assessment Subjective History Pt oriented x 4 on arrival. Pt agreeable to engage in therapy evaluation. Pt was admitted via ED on 10/25/20 due to SOB, weakness, chest pain, and AMS. Pt has a past medical history of Anxiety, Atrial Fibrillation, Chronic Obstructive Pulmonary Disease (COPD), Depression, Hypertension, Palpitations. Pt reports she lives with her family. Pt claims she was independent with all ADLs prior to being in the hospital . She was dependent upon her family to complete all IADLs. Pt did not use a walker or a cane, but she does have them at home. She did use oxygen at times. Subjective I don't want to get up I'm nauseated. Objective Patient Orientation Person,Place,Birthday,Year Upper Extremity Gross ROM WFL Bed Mobility bed mobility-scooting,bed mobility - supine/sit,bed mobility - rolling Assist Level Contact Guard/Hand Hold Transfer Training Sit/Stand Transfer Assist Level Minimal x 1 (25% assist) Rehab OT IP prob,goals,plan Problems Date of Evaluation: 10/28/20 OT IP Problems Bed Mobility,Transfers,Gait, Balance,Self care,Safety Rehab Potential Rehab Potential Good Equipment Needs Assistive Devices Rolling / Wheeled Walker Plan OT intervention Plan Bed Mobility,Transfers,Gait, Balance,Self care,Safety, Therapeutic Exercise OT Plan Frequency BID Duration LOS Discharge Goals Bed Mobility Ability Standby Assistance Sit to Stand Chair Transfer Ability Contact Guard/Hand Hold Chair Transfer Ability Contact Guard/Hand Hold Chair Transfer Technique Sit to/from Ambulatory Chair Transfer Assistive Devices Rolling Walker Self care skills fully toilet trained,uses
--- NOTE | 2020-10-28 13:49 | PC.NURSE ---
Neb tx not given at this time due to increased heart rate.
--- NOTE | 2020-10-28 14:50 | PC.NURSE ---
This am pt went into afib with rvr with HR in the 160's to 180's, pt moved to 207 and started on cardizem bolus and gtt and maxed at 15 ml/hr. BP Stable and sats wnl on 2 L NC. RR even and unlabored.Afebrile. Gtt increased @ 1205,1210 and 1220 Pt still afib rvr therefore A Black,PERSONAL FINANCIAL ADVISOR notified and pt started on esmolol gtt and bolus given as well over 5 Minutes per apr. Whitney Alvarenga RN is caring for pt in step down at this time. PRN zofran given this am for emesis several episodes. Pt currently resting with family member at bedside and CB in reach.
--- NOTE | 2020-10-28 16:48 | PC.NURSE ---
1424 notified A Black that pt was not tolerating Esmolol drip at this time, pt bp was in the 70's and 80's. rate adjusted after speaking with pharmacy. 1432 a black gave order for Amio bolus and Amio drip at this time.
--- NOTE | 2020-10-28 20:58 | PC.NURSE ---
Report was received from Ericka Walters RN following pt being placedon cardizem drip. Care and assessments of patient following being placed on drip were done under my guidance and supervision. drip titrations and monitoring were performed by myself
--- NOTE | 2020-10-28 22:05 | PC.NURSE ---
late entry:at approx 1850 pt cardizem drip was titrated from 15ml to 10 ml r/t pt hr being nsr and having periods of hr in the 60's.
[2020-10-29] VITALS (31 sets, daily range): BP systolic 96–173; BP diastolic 51–98; PULSE 60–91; RESP 11–20; TEMP 36.4–36.8; O2SAT 2–100; BMI 13.1
--- NOTE | 2020-10-29 03:15 | ECG_ITS ---
APPROVED REPORT Exam: Resting ECG HR:67 bpm ECG Measurements Heart Rate 67 AXES GA 124 P 45 QRSd 104 QRS 12 QT 442 T 68 QTc 467 Conclusion Normal sinus rhythm Low voltage QRS Cannot rule out Anterior infarct, age undetermined Abnormal ECG Electronically signed by : Nigel Argueta MD 11/02/2020 21:06:12
--- NOTE | 2020-10-29 03:38 | PC.NURSE ---
She has converted to NSR.
--- NOTE | 2020-10-29 06:41 | PC.NURSE ---
Neb tx on hold at this time. Pt recently converted to NSR from AF with RVR, and is now resting.
--- NOTE | 2020-10-29 08:22 | PC.NURSE ---
Dr Hu office staff notified of consult on patient
--- NOTE | 2020-10-29 09:24 | HMH.ACPN2 ---
<Mary Mcgovern - Last Filed: 10/29/20 09:24> Internal Medicine - PN: Subj *Date: 10/29/20 *Time: 08:15 Interval history: She is not feeling well this morning and currently vomiting. She denies any pain, chest pain, or SOB. Exam Vital signs and Labs for Last 24 Hours: Temp Pulse Resp BP Pulse Ox 97.9 F 65 16 141/67 H 90 L 10/29/20 08:00 10/29/20 08:00 10/29/20 08:00 10/29/20 08:00 10/29/20 08:00 I & O for Last 24 hours: Intake & Output 10/26/20 10/27/20 10/28/20 10/29/20 11:59 11:59 11:59 11:59 Intake Total 1680 / 1680 1979 / 1979 180 / 180 969 / 969 Output Total 200 / 200 200 / 200 0 / 0 Balance 1680 / 1680 1780 / 1780 -20 / -20 969 / 969 Weight 68 lb 5.493 oz 74 lb 1 oz Microbiology Reports for the Last 24 Hours: Microbiology 10/28/20 09:40 Sputum - Expectorated Sputum Gram Stain - Final - Constitutional no acute distress Comments: does not appear to feel well - *Routine HEENT Exam Head: Present: normocephalic ENT: Present: mucous membranes moist - *Routine Respiratory Exam Absent: respiratory distress Comments: good air movement bilaterally with rhonchi throughout - *Routine Cardiovascular Exam Present: RRR - *Routine Abdominal Exam Present: soft, normoactive bowel sounds. Absent: tenderness, distended - *Routine Extremities Exam Present: full ROM, pulses intact. Absent: edema, calf tenderness - *Routine Neurological Exam Present: alert, oriented X3, moving all extremities, normal speech Assessment and Plan (1) Atrial fibrillation with rapid ventricular response Status: Acute Category: Medical Code(s): I48.91 - Unspecified atrial fibrillation (2) Non-STEMI (non-ST elevated myocardial infarction) Status: Acute Category: Medical Code(s): I21.4 - Non-ST elevation (NSTEMI) myocardial infarction (3) Elevated troponin Status: Acute Category: Medical Code(s): R77.8 - Other specified abnormalities of plasma proteins (4) Unstable angina Status: Resolved Category: Medical Code(s): I20.0 - Unstable angina (5) Community acquired pneumonia Status: Acute Qualifiers: Laterality: right Lung location: lower lobe of lung Qualified Code(s): J18.9 - Pneumonia, unspecified organism Category: Medical Code(s): J18.9 - Pneumonia, unspecified organism (6) Respiratory failure with hypoxia Status: Acute Qualifiers: Chronicity: acute Qualified Code(s): J96.01 - Acute respiratory failure with hypoxia Category: Medical Code(s): J96.91 - Respiratory failure, unspecified with hypoxia (7) CAD (coronary artery disease) Status: Chronic Category: Medical Code(s): I25.10 - Atherosclerotic heart disease of [place] coronary artery without angina pectoris (8) Hx of CABG Status: Chronic Category: Surgical Code(s): Z95.1 - Presence of aortocoronary bypass graft (9) HTN (hypertension) Status: Chronic Qualifiers: Hypertension type: primary hypertension Qualified Code(s): I10 - Essential (primary) hypertension Category: Medical Code(s): I10 - Essential (primary) hypertension (10) COPD (chronic obstructive pulmonary disease) Status: Acute Category: Medical Code(s): J44.9 - Chronic obstructive pulmonary disease, unspecified - Assessment and plan all Dx Assessment and Plan for all problems:: Further per Dr. Canseco and cardiology. <Tutu Canseco - Last Filed: 10/29/20 19:17> Internal Medicine - PN: Subj *Date: 10/29/20 *Time: 19:16 Exam Vital signs and Labs for Last 24 Hours: Temp Pulse Resp BP Pulse Ox 98.0 F 78 16 154/81 H 92 L 10/29/20 14:55 10/29/20 18:00 10/29/20 18:00 10/29/20 18:00 10/29/20 18:00 I & O for Last 24 hours: Intake & Output 10/27/20 10/28/20 10/29/20 10/30/20 11:59 11:59 11:59 11:59 Intake Total 1979 / 1979 180 / 180 969 / 969 309 / 309 Output Total 200 / 200 200 / 200 0 / 0 Balance 1780 / 1780 -20 / -20 969
--- NOTE | 2020-10-29 09:33 | XR_ITS ---
PROCEDURE: XR CHEST PORTABLE CLINICAL HISTORY: n/v, difficulty swallowing COMPARISON: CR XR CHEST PORTABLE from 10/25/[address] ANGIO CHEST PE PROTOCOL from 10/26/2020 FINDINGS: Mild cardiomegaly without failure. Prior CABG. Coronary artery stent is noted on the left. Worsening consolidation in the right lower lobe with developing right-sided pleural effusion. Infiltrate also noted in the right upper lobe laterally. No acute bony abnormalities. IMPRESSION: Worsening right lower lobe pneumonia with effusion with infiltrate also present in the right upper lobe Dictated by: Oscar Greer MD 10/29/2020 13:42 Oscar Greer MD in OV 10/29/2020 13:42
--- NOTE | 2020-10-29 10:44 | HMH.PNCARD ---
Subjective Date: 10/29/20 Time: : Principal diagnosis: angina Interval history: This is a 75-year-old female who was admitted to the hospital with shortness of breath, weakness and altered mental status. She went to atrial fibrillation with RVR and was also having chest pain. Patient did convert to normal sinus rhythm. The patient was found to have a non-ST elevation myocardial infarction and underwent stenting to critical two-vessel disease involving the circumflex and right coronary artery. The patient tolerated the procedure well. The ROSE and left subclavian were not assessed but it is presumed that the ROSE is open based on to severe two-vessel disease with normal LV function. Yesterday while trying to eat the patient got choked on her food and started to have significant nausea and vomiting. She then went back into atrial fibrillation with RVR. Her heart rate was around 180 bpm. She was given a diltiazem bolus and drip. She remained tachycardic after being maxed out on the diltiazem drip and was started on an esmolol drip. The patient was having issues with hypotension so the drips were not able to be titrated up anymore and she was then started on amiodarone drip. The patient has since converted to sinus rhythm. This morning she denies any chest pain or pressure. She denies any shortness of breath or edema. She denies any fever, chills, diarrhea, PND orthopnea. She is still complaining of getting sick after she eats food. The patient states that she is having a lot of difficulty swallowing her food and gets choked and this makes her start vomiting. Exam Vital signs and Labs for Last 24 Hours: Temp Pulse Resp BP Pulse Ox 97.9 F 65 16 141/67 H 90 L 10/29/20 08:00 10/29/20 08:00 10/29/20 08:00 10/29/20 08:00 10/29/20 08:00 I & O for Last 24 hours: Intake & Output 10/26/20 10/27/20 10/28/20 10/29/20 23:59 23:59 23:59 23:59 Intake Total 2160 / 2160 60 / 60 750 / 750 339 / 339 Output Total 200 / 300 200 / 200 0 / 0 Balance 2159 -140 / -240 550 / 550 339 / 339 Weight 68 lb 5.493 oz 74 lb 1 oz Microbiology Reports for the Last 24 Hours: Microbiology 10/28/20 09:40 Sputum - Expectorated Sputum Gram Stain - Final Narrative: Telemetry strip is sinus rhythm with a rate in the 70s. - Constitutional no acute distress, thin, cachectic - *Routine HEENT Exam Head: Present: normocephalic, atraumatic Eye: Present: EOMI, PERRL ENT: Present: mucous membranes moist - *Routine Neck Exam Present: supple, full ROM, normal carotid upstroke. Absent: JVD, carotid bruit, lymphadenopathy - *Routine Respiratory Exam Present: CTA bilaterally - *Routine Cardiovascular Exam Present: RRR, Normal S1, Normal S2. Absent: murmur - *Routine Abdominal Exam Present: soft, normoactive bowel sounds. Absent: tenderness, distended - *Routine Extremities Exam Present: full ROM, pulses intact, normal capillary refill. Absent: cyanosis, clubbing, edema - *Routine Skin Exam Present: intact, warm. Absent: erythema, rash - *Routine Neurological Exam Present: alert, oriented X3, CN II-XII intact. Absent: sensory deficit, motor deficit Progress Note: A&P (1) Atrial fibrillation with rapid ventricular response Status: Resolved (2) Non-STEMI (non-ST elevated myocardial infarction) Status: Acute (3) Elevated troponin Status: Acute (4) Unstable angina Status: Resolved (5) Community acquired pneumonia Status: Acute (6) Respiratory failure with hypoxia Status: Acute (7) CAD (coronary artery disease) Status: Chronic (8) Hx of CABG Status: Chronic (9) HTN (hypertension) Status: Chronic (10) COPD (chronic obstructive pulmonary disease) Status: Acute (11) Dysphagia Status: Acute Assessment and Plan for All Diagnoses:: Plan: 1. The patient was admitted to the hospital for pneumonia. This is being treated by her primary care provider. 2. The
--- NOTE | 2020-10-29 11:22 | HMH.ACPN ---
Internal Medicine - PN: Subj *Date: 10/29/20 *Time: 11:22 Exam Vital signs and Labs for Last 24 Hours: Temp Pulse Resp BP Pulse Ox 97.9 F 70 18 140/67 97 10/29/20 08:00 10/29/20 10:30 10/29/20 10:30 10/29/20 10:30 10/29/20 10:30 I & O for Last 24 hours: Intake & Output 10/26/20 10/27/20 10/28/20 10/29/20 23:59 23:59 23:59 23:59 Intake Total 2160 / 2160 60 / 60 750 / 750 339 / 339 Output Total 200 / 300 200 / 200 0 / 0 Balance 2159 / 1960 -140 / -240 550 / 550 339 / 339 Weight 31 kg 33.594 kg Microbiology Reports for the Last 24 Hours: Microbiology 10/28/20 09:40 Sputum - Expectorated Sputum Gram Stain - Final Assessment and Plan (1) Atrial fibrillation with rapid ventricular response Status: Resolved Category: Medical Code(s): I48.91 - Unspecified atrial fibrillation (2) Non-STEMI (non-ST elevated myocardial infarction) Status: Acute Category: Medical Code(s): I21.4 - Non-ST elevation (NSTEMI) myocardial infarction (3) Elevated troponin Status: Acute Category: Medical Code(s): R77.8 - Other specified abnormalities of plasma proteins (4) Unstable angina Status: Resolved Category: Medical Code(s): I20.0 - Unstable angina (5) Community acquired pneumonia Status: Acute Qualifiers: Laterality: right Lung location: lower lobe of lung Qualified Code(s): J18.9 - Pneumonia, unspecified organism Category: Medical Code(s): J18.9 - Pneumonia, unspecified organism (6) Respiratory failure with hypoxia Status: Acute Qualifiers: Chronicity: acute Qualified Code(s): J96.01 - Acute respiratory failure with hypoxia Category: Medical Code(s): J96.91 - Respiratory failure, unspecified with hypoxia (7) CAD (coronary artery disease) Status: Chronic Category: Medical Code(s): I25.10 - Atherosclerotic heart disease of [place] coronary artery without angina pectoris (8) Hx of CABG Status: Chronic Category: Surgical Code(s): Z95.1 - Presence of aortocoronary bypass graft (9) HTN (hypertension) Status: Chronic Qualifiers: Hypertension type: primary hypertension Qualified Code(s): I10 - Essential (primary) hypertension Category: Medical Code(s): I10 - Essential (primary) hypertension (10) COPD (chronic obstructive pulmonary disease) Status: Acute Category: Medical Code(s): J44.9 - Chronic obstructive pulmonary disease, unspecified (11) Dysphagia Status: Acute Category: Medical Code(s): R13.10 - Dysphagia, unspecified The patient's infection will respond to the chosen ABx?: Yes Is the patient receiving the right drug, dose, and route?: Yes Could a more targeted ABx be ordered?: No (SPUTUM CX PENDING)
--- NOTE | 2020-10-29 11:23 | PC.NURSE ---
Esmolol gtt STOPPED
--- NOTE | 2020-10-29 11:25 | HMH.GSCON ---
*Admission Date: 10/25/20 *Reason for consult:: Dysphagia *History of present illness: This is a 75-year-old female seen in consultation from Dr. Canseco for evaluation regarding dysphagia. She is currently being treated for pneumonia, non-STEMI, and atrial fibrillation. She develops difficulty swallowing with breakfast this morning and the surgical service was consulted. Currently, she feels like things just are not going down . She continues to have difficulty even swallowing saliva . Review of Systems - *Gastrointestinal Reports difficulty swallowing - *Neurologic Reports dizziness, Reports weakness, Denies seizure-like activity, Denies headache(s) [facility] History Medical History: Reports:: Anxiety, Atrial Fibrillation, Chronic Obstructive Pulmonary Disease (COPD), Coronary Artery Disease, Depression, Hypertension, Palpitations Denies:: Cancer, Cerebrovascular Accident, Diabetes Mellitus Type 1, Diabetes Mellitus Type 2, Gastroesophageal Reflux Disease(GERD), MRSA, Seizures *Have you ever received a pneumonia vaccine?: Yes *Have you received a flu vaccine this season?: Yes Other Medical History: Reports: Arthritis, Hypothyroidism, Thyroid Disease Other Surgeries: Yes: No Previous Surgery, Cardiac Catheterization, Open Heart Surgery Amputation: No Fractures: No - *Social History Smoking Status: Current every day smoker Tobacco Type: cigarettes # Packs/Day (cigarettes): 1 Alcohol Intake: never *Occupational Status:: retired Housing: house Household Members: family *Travel in the last 8 weeks: None - Psychiatric History Pschychiatric History:: Reports:: Anxiety, Depression Family Hx:: Coronary Artery Disease Meds Home Medications Medication Instructions Recorded Confirmed Type Clopidogrel Bisulfate [Plavix 75mg 75 mg PO HS 10/25/20 10/25/20 History Tab] Gabapentin 300 mg PO DIRECTED 10/25/20 10/26/20 History LORazepam [Lorazepam 1mg Tablet] 0.25 mg PO HSP PRN 10/25/20 10/26/20 History Levothyroxine Sodium 75 mcg PO DAILY 10/25/20 10/25/20 History [Levothyroxine 75mcg (0.075mg) Tab] Metoprolol Tartrate [Lopressor 100 100 mg PO BID 10/25/20 10/26/20 History mg Tablets] Oxycodone HCl/Acetaminophen 1 each PO Q6H 10/25/20 10/25/20 History [Oxycodone-Acetaminophen 10-325] dilTIAZem HCL [Cardizem ER 300mg 300 mg PO DAILY 10/25/20 10/25/20 History cap] Escitalopram Oxalate 5 mg PO DAILY 10/26/20 10/26/20 History Allergies Allergy/AdvReac Type Severity Reaction Status Date / Time Penicillins [PENICILLINS] Allergy Mild Rash Verified 10/25/20 22:00 Exam Vital signs and Labs for Last 24 Hours: Temp Pulse Resp BP Pulse Ox 97.9 F 70 18 140/67 97 10/29/20 08:00 10/29/20 10:30 10/29/20 10:30 10/29/20 10:30 10/29/20 10:30 I & O for Last 24 hours: Intake & Output 10/26/20 10/27/20 10/28/20 10/29/20 11:59 11:59 11:59 11:59 Intake Total 1680 / 1680 1979 / 1979 180 / 180 969 / 969 Output Total 200 / 200 200 / 200 0 / 0 Balance 1680 / 1680 1780 / 1780 -20 / -20 969 / 969 Weight 68 lb 5.493 oz 74 lb 1 oz Microbiology Reports for the Last 24 Hours: Microbiology 10/28/20 09:40 Sputum - Expectorated Sputum Gram Stain - Final - Constitutional no acute distress - *Routine Respiratory Exam Absent: respiratory distress - *Routine Cardiovascular Exam Absent: tachycardia - *Routine Neurological Exam Present: alert - Routine Psychiatric Exam Present: normal affect Results - Labs 10/28/20 06:54 10/28/20 06:54 Assessment and Plan (1) Atrial fibrillation with rapid ventricular response Status: Resolved Category: Medical Code(s): I48.91 - Unspecified atrial fibrillation (2) Non-STEMI (non-ST elevated myocardial infarction) Status: Acute Category: Medical Code(s): I21.4 - Non-ST elevation (NSTEMI) myocardial infarction (3) Elevated troponin Status: Acute Category: Medical Code(s): R77.8 - Other specified abnormal
--- NOTE | 2020-10-29 12:55 | P.PCN_ITS ---
- Procedure: Date: 10/29/20 Patient Date of :: 1945 Procedure Performed:: Esophagogastroscopy with foreign body removal Indications:: Esophageal foreign body Performing Provider:: Kaleb Medina MD Referring Provider:: Dr. Canseco Sedation:: Monitored anesthesia care Procedure:: After informed consent was obtained the patient was taken to the endoscopy suite. Sedation ensued after the patient was transferred to the left lateral decubitus position. Pulse, blood pressure, and oxygen saturation were monitored throughout the procedure. A combination of barium and soft food particles were encountered throughout the esophagus. No definitive stricture noted. She did have fairly severe focal distal esophageal candidal infection. A comb ination of irrigation and forward manipulation was utilized to advance the food particles into the stomach. The endoscope was easily advanced into the gastric lumen. No definitive stricture encountered. Retroflexion within the gastric lumen was accomplished. The gastroscope was carefully removed and the patient was transferred to recovery in stable condition. Please see findings and specimens below for detail. Findings:: Food particles and barium throughout esophagus (cleared during procedure) Possible anatomic stricture from flap secondary to focal candidal infection Possible physiologic stricture secondary to severe spasm Specimens:: None Recommendations:: Diflucan ordered Clear liquid diet for now Complications:: No immediate Estimated blood obtained (mL): 0
--- NOTE | 2020-10-29 13:04 | HMH.ANESCL ---
[facility] Anesthesia Checklist - Patient Identification Patient Identification: Arm Band, Verbal (Name & ) - Structural Data Admitted From: Inpatient Planned Operative Procedure/s: egd Consent for Planned Operative Procedure(s) Verified: Yes Verified Documents: History and Physical - NPO Status Verified Time NPO: 08:00 - Additional verifications Patient : No Anesthesia Reactions: No Hx Blood Transfusions: No Blood Transfusion Reaction: No Cephalosporin Allergy: No Previous Colonoscopy: No - Cardiovascular Assessment Heart Sounds: S1 & S2 Pulse Strength: Baseline Pulse Rhythm: Regular Peripheral Edema: No - Airway Assessment C-Spine Mobility Assessed: Yes TMJ Mobility Assessed: Yes Dentition: Good Dentition - Neurological Assessment Level of Consciousness: Awake, Alert, Appropriate Hx Seizures: No Numbness or tingling in extremities: No - Anesthesia Plan Anesthesia Risk discussed: Yes Anesthesia Plan: Verified ASA Class: III Anesthesia Type: [facility] History I have reviewed the patient's past medical history: Yes Medical History: Reports:: Anxiety, Atrial Fibrillation, Chronic Obstructive Pulmonary Disease (COPD), Coronary Artery Disease, Depression, Hypertension, Palpitations Denies:: Cancer, Cerebrovascular Accident, Diabetes Mellitus Type 1, Diabetes Mellitus Type 2, Gastroesophageal Reflux Disease(GERD), MRSA, Seizures *Have you ever received a pneumonia vaccine?: Yes *Have you received a flu vaccine this season?: Yes Other Medical History: Reports: Arthritis, Hypothyroidism, Thyroid Disease Anesthesia experience/problems:: none Other Surgeries: Yes: No Previous Surgery, Cardiac Catheterization, Open Heart Surgery Amputation: No Fractures: No - *Social History Smoking Status: Current every day smoker Tobacco Type: cigarettes # Packs/Day (cigarettes): 1 Alcohol Intake: never Substance Use Type: other *Occupational Status:: retired Housing: house Household Members: family *Travel in the last 8 weeks: None - Psychiatric History Pschychiatric History:: Reports:: Anxiety, Depression Family Hx:: Coronary Artery Disease
--- NOTE | 2020-10-29 14:00 | FL_ITS ---
PROCEDURE: FL BARIUM SWALLOW CLINICAL INDICATION: dysphagia COMPARISON: No exams were available for comparison FINDINGS: The patient was only able to small a small amount of barium in the right lateral position. There was debris present in the mid esophagus with the lower esophagus not demonstrated. These findings are consistent with esophageal obstruction. The point of obstruction however is not determined on this exam. Fluoroscopy time: 55 seconds IMPRESSION: Debris-filled esophagus suggesting esophageal obstruction. Dictated by: Oscar Greer MD 10/29/2020 15:28 Oscar Greer MD in [place] 10/29/2020 15:28
[2020-10-30] VITALS (13 sets, daily range): BP systolic 118–146; BP diastolic 57–71; PULSE 63–80; RESP 14–18; TEMP 36.6–37.3; O2SAT 93–96; BMI 12.3
--- NOTE | 2020-10-30 03:49 | PC.NURSE ---
Patient reported nausea while taking HS meds, complained of difficulty swallowing and started to cough. Zofran given, during this time heart rate between 130s-140s. Did not give rest of HS meds. After approximately 15 minutes heart rate 60s-70s and has sustained. No more complaints of nausea. No complaints of shortness of air, pain or dizziness.
--- NOTE | 2020-10-30 06:54 | HMH.GSPN ---
Subjective Narrative: The patient is currently resting. Per nursing she continues to have some difficulty swallowing. Overall, her symptoms have somewhat improved . Progress Note: A&P (1) Atrial fibrillation with rapid ventricular response Status: Resolved (2) Non-STEMI (non-ST elevated myocardial infarction) Status: Acute (3) Elevated troponin Status: Acute (4) Unstable angina Status: Resolved (5) Community acquired pneumonia Status: Acute (6) Respiratory failure with hypoxia Status: Acute (7) CAD (coronary artery disease) Status: Chronic (8) Hx of CABG Status: Chronic (9) HTN (hypertension) Status: Chronic (10) COPD (chronic obstructive pulmonary disease) Status: Acute (11) Dysphagia Status: Acute Assessment and plan: Anatomic versus physiologic stricture . Causative factor possibly secondary to severe unrelenting spasm versus tissue flap . Of note, she does have a distal esophageal candidal infection. Likely advance to full liquids with close ongoing observation. Will defer to primary service. Ultimately, she may require formal modified barium swallow for further evaluation. (12) Esophageal candidiasis Status: Acute Assessment and plan: Continue Diflucan Exam Vital signs and Labs for Last 24 Hours: Temp Pulse Resp BP Pulse Ox 99.1 F 70 14 143/71 H 96 10/30/20 03:38 10/30/20 06:24 10/30/20 03:38 10/30/20 03:38 10/30/20 06:24 I & O for Last 24 hours: Intake & Output 10/27/20 10/28/20 10/29/20 10/30/20 11:59 11:59 11:59 11:59 Intake Total 1979 / 1979 180 / 180 969 / 969 309 / 309 Output Total 200 / 200 200 / 200 0 / 0 1100 / 1100 Balance 1780 / 1780 -20 / -20 969 / 969 -791 / -791 Weight 74 lb 1 oz 69 lb 9 oz Microbiology Reports for the Last 24 Hours: Microbiology 10/28/20 09:40 Sputum - Expectorated Sputum Gram Stain - Final 10/28/20 09:40 Sputum - Expectorated Sputum Sputum Culture - Preliminary - Constitutional Comments: Currently resting - *Routine Respiratory Exam Absent: respiratory distress - *Routine Cardiovascular Exam Absent: tachycardia
--- NOTE | 2020-10-30 08:10 | HMH.ACPN2 ---
<Rina Mahajan - Last Filed: 10/30/20 08:10> Internal Medicine - PN: Subj *Date: 10/30/20 *Time: 08:10 Interval history: Patient states she is doing okay. She still has some difficulty with swallowing although she is sitting up and drinking her coffee and enjoying. She denies chest pain and shortness of breath. She remains in sinus rhythm. She is now on p.o. amiodarone. Exam Vital signs and Labs for Last 24 Hours: Temp Pulse Resp BP Pulse Ox 97.8 F 74 18 118/59 L 93 L 10/30/20 07:40 10/30/20 07:40 10/30/20 07:40 10/30/20 07:40 10/30/20 07:40 I & O for Last 24 hours: Intake & Output 10/27/20 10/28/20 10/29/20 10/30/20 11:59 11:59 11:59 11:59 Intake Total 1979 / 1979 180 / 180 969 / 969 549 / 549 Output Total 200 / 200 200 / 200 0 / 0 1100 / 1100 Balance 1780 / 1780 -20 / -20 969 / 969 -551 / -551 Weight 74 lb 1 oz 69 lb 9 oz Microbiology Reports for the Last 24 Hours: Microbiology 10/28/20 09:40 Sputum - Expectorated Sputum Gram Stain - Final 10/28/20 09:40 Sputum - Expectorated Sputum Sputum Culture - Preliminary - Constitutional no acute distress Comments: Sitting up in the bed drinking her coffee. Appears comfortable. - *Routine Respiratory Exam Present: CTA bilaterally (Anteriorly and posteriorly) - *Routine Cardiovascular Exam Present: RRR Comments: Monitor shows sinus rhythm - *Routine Abdominal Exam Present: soft, normoactive bowel sounds. Absent: tenderness, distended - *Routine Extremities Exam Absent: edema, calf tenderness - *Routine Neurological Exam Present: alert, oriented X3 Assessment and Plan (1) Atrial fibrillation with rapid ventricular response Status: Resolved Category: Medical Code(s): I48.91 - Unspecified atrial fibrillation (2) Non-STEMI (non-ST elevated myocardial infarction) Status: Acute Category: Medical Code(s): I21.4 - Non-ST elevation (NSTEMI) myocardial infarction (3) Elevated troponin Status: Acute Category: Medical Code(s): R77.8 - Other specified abnormalities of plasma proteins (4) Unstable angina Status: Resolved Category: Medical Code(s): I20.0 - Unstable angina (5) Community acquired pneumonia Status: Acute Qualifiers: Laterality: right Lung location: lower lobe of lung Qualified Code(s): J18.9 - Pneumonia, unspecified organism Category: Medical Code(s): J18.9 - Pneumonia, unspecified organism (6) Respiratory failure with hypoxia Status: Acute Qualifiers: Chronicity: acute Qualified Code(s): J96.01 - Acute respiratory failure with hypoxia Category: Medical Code(s): J96.91 - Respiratory failure, unspecified with hypoxia (7) CAD (coronary artery disease) Status: Chronic Category: Medical Code(s): I25.10 - Atherosclerotic heart disease of [place] coronary artery without angina pectoris (8) Hx of CABG Status: Chronic Category: Surgical Code(s): Z95.1 - Presence of aortocoronary bypass graft (9) HTN (hypertension) Status: Chronic Qualifiers: Hypertension type: primary hypertension Qualified Code(s): I10 - Essential (primary) hypertension Category: Medical Code(s): I10 - Essential (primary) hypertension (10) COPD (chronic obstructive pulmonary disease) Status: Acute Category: Medical Code(s): J44.9 - Chronic obstructive pulmonary disease, unspecified (11) Dysphagia Status: Acute Category: Medical Code(s): R13.10 - Dysphagia, unspecified (12) Esophageal candidiasis Status: Acute Category: Medical Code(s): B37.81 - Candidal esophagitis - Assessment and plan all Dx Assessment and Plan for all problems:: Patient has been started on Diflucan. We will continue with IV antibiotics. According to nursing documentation bowels have not moved since admission. MiraLAX has been added. Diet has been advanced to full liquids. Patient needs to sit up in a chair. <Tutu Canseco - Frank Pedroza
[2020-10-30 08:37] LABS: Basophils % 0.2 % (0.1-2.0); Eosinophils # 0.1 K/mm3 (0.0-0.4); Eosinophils % 0.3 % (0.1-12.0); Hematocrit 38.6 % (37.0-47.0); Hemoglobin 12.7 g/dL (12.2-16.2); Lymphocytes # 0.7 K/mm3 (0.7-4.5); Lymphocytes % 4.8 % (10-50); Mean Corpuscular Volume 94.1 fl (81-99); Mean Platelet Volume 7.1 fl (7.4-10.4); Monocytes # 0.7 K/mm3 (0.1-1.0); Monocytes % 4.8 % (1.7-9.3); Neutrophils # 13.8 K/mm3 (1.8-7.8); Neutrophils % 89.8 % (37.0-80.0); Platelet Count 484 K/mm3 (142-424); Red Cell Distribution Width 12.1 % (11.5-17.5); White Blood Count 15.4 K/mm3 (4.8-10.8)
[2020-10-30 08:38] LABS: MANUAL DIFFERENTIAL MANUAL DIFFERENTIAL (MANUAL DIFF)
[2020-10-30 08:43] LABS: Alanine Aminotransferase 9 U/L (12-78); Albumin/Globulin Ratio 1.3 (1.1-1.8); Alkaline Phosphatase 46 U/L (38-126); Anion Gap 10.8 mEq/L (5-15); Aspartate Amino Transferase 29 U/L (14-36); Bilirubin,Total 0.5 mg/dl (0.2-1.3); Calcium 7.5 mg/dl (8.4-10.2); Carbon Dioxide 34 mmol/L (22.0-30.0); Chloride 81 mmol/L (98-107); Creatinine Clearance Estimated 24 mL/min (50-200); Estimated Glomerular Filt Rate 216 ml/min (>60); GFR (African American) 262 ML/MIN (>60); Globulin 2.4 g/dL (1.3-3.2); Glucose 140 mg/dl (74-100); Sodium 124 mmol/L (136-145); Total Protein,Serum 5.4 g/dl (6.3-8.2)
[2020-10-30 08:55] LABS: Lymphocytes % 6 % (10-50); Monocytes % 11 % (2-9); Neutrophils % 83 % (42-76); Platelet Estimate Slight Increase; RBC Morphology Normal; Total Cells Counted 100
[2020-10-30 08:56] LABS: Blood Urea Nitrogen 2 mg/dl (7-17)
[2020-10-30 08:58] LABS: Potassium 1.8 mmoL/L (3.5-5.1)
--- NOTE | 2020-10-30 09:35 | XR_ITS ---
PROCEDURE: XR CHEST PORTABLE CLINICAL HISTORY: leukocytosis COMPARISON: CR XR CHEST PORTABLE from 10/25/[address] ANGIO CHEST PE PROTOCOL from 10/26/2020 CR XR CHEST PORTABLE from 10/29/2020 FINDINGS: There is a persistent ill-defined pneumonic infiltrate right perihilar region and right lower lobe and now has been transbronchial spread to the anterior segment right upper lobe since yesterday's study. Also minimal infiltrate is seen in left lower lobe. There small bilateral pleural effusions larger right side than left. Again noted is evidence of the previous CABG. There is a left-sided coronary artery stent most likely LAD. IMPRESSION: Interval progression of bilateral ill-defined pneumonic infiltrates Dictated by: Dr. Blair Barr MD 10/30/2020 10:35 Dr. Blair Barr MD in [place] 10/30/2020 10:35
--- NOTE | 2020-10-30 09:48 | HMH.PNCARD ---
Subjective Date: 10/30/20 Time: 09:30 Principal diagnosis: angina Interval history: This is a 75-year-old female who was mated to the hospital with shortness of breath, weakness and altered mental status. The patient went into atrial fibrillation with RVR and started having chest pain. She was converted to normal sinus rhythm and was found to have a non-ST elevation myocardial infarction and underwent stenting to critical two-vessel disease involving the [place]' circumflex artery and right coronary artery. The procedure was tolerated well. The ROSE and left subclavian were not accessed but it is presumed that the ROSE is open based on severe two-vessel disease with normal LV function. The patient did go back in atrial fibrillation with RVR following the procedure while she was getting choked on her food and having nausea and vomiting. The patient was rate controlled with a diltiazem drip, esmolol drip and amiodarone drip. She has been converted over to oral amiodarone and metoprolol. We will keep her off of oral diltiazem at this time. The patient has converted to sinus rhythm and remains in sinus rhythm this morning. She denies any chest pain or pressure. She denies any shortness of breath or edema. She states that her nausea and vomiting are much better. She states that she has not had any choking this morning she did undergo EGD yesterday which showed: Food particles and barium throughout esophagus (cleared during procedure) Possible anatomic stricture from flap secondary to focal candidal infection Possible physiologic stricture secondary to severe spasm Exam Vital signs and Labs for Last 24 Hours: Temp Pulse Resp BP Pulse Ox 97.8 F 74 18 118/59 L 93 L 10/30/20 07:40 10/30/20 07:40 10/30/20 07:40 10/30/20 07:40 10/30/20 07:40 Laboratory Results - last 24 hr 10/30/20 08:25: WBC 15.4 H D, RBC 4.10 L, Hgb 12.7, Hct 38.6, MCV 94.1, MCH 31.0, MCHC 33.0, RDW 12.1, Plt Count 484 H, MPV 7.1 L, Neut % (Auto) 89.8 H, Lymph % (Auto) 4.8 L, [place] % (Auto) 4.8, Eos % (Auto) 0.3, Baso % (Auto) 0.2, Neut # (Auto) 13.8 H, Lymph # (Auto) 0.7, [place] # (Auto) 0.7, Eos # (Auto) 0.1, Baso # (Auto) 0.0, Total Counted 100, Neutrophils % (Manual) 83 H, Lymphocytes % (Manual) 6 L, Monocytes % (Manual) 11 H, Platelet Estimate Slight increase, RBC Morphology Normal 10/30/20 08:25: Sodium 124 L, Potassium 1.8 L* D, Chloride 81 L, Carbon Dioxide 34 H, Anion Gap 10.8, BUN 2 L D, Creatinine 0.30 L, Estimated Creat Clear 24, Estimated GFR 216, Est GFR ( Amer) 262, Glucose 140 H, Calcium 7.5 L, Total Bilirubin 0.5, AST 29, ALT 9 L, Alkaline Phosphatase 46, Total Protein 5.4 L, Albumin 3.0 L, Globulin 2.4, Albumin/Globulin Ratio 1.3 I & O for Last 24 hours: Intake & Output 10/27/20 10/28/20 10/29/20 10/30/20 23:59 23:59 23:59 23:59 Intake Total 60 / 60 750 / 750 648 / 648 240 / 240 Output Total 200 / 300 200 / 200 0 / 750 1100 / 1100 Balance -140 / -240 550 / 550 648 / -102 -860 / -860 Weight 74 lb 1 oz 69 lb 9 oz Microbiology Reports for the Last 24 Hours: Microbiology 10/28/20 09:40 Sputum - Expectorated Sputum Gram Stain - Final 10/28/20 09:40 Sputum - Expectorated Sputum Sputum Culture - Preliminary Narrative: Barium x-ray showed: Debris-filled esophagus suggesting esophageal obstruction. Telemetry strip shows sinus rhythm with a rate of 63. - Constitutional no acute distress, thin, cachectic - *Routine HEENT Exam Head: Present: normocephalic, atraumatic Eye: Present: EOMI, PERRL ENT: Present: mucous membranes moist - *Routine Neck Exam Present: supple, full ROM, normal carotid upstroke. Absent: JVD, carotid bruit, lymphadenopathy - *Routine Respiratory Exam Present: CTA bilaterally - *Routine Cardiovascular Exam Present: RRR, Normal S1, Normal S2. Absent: murmur - *Routine Abdominal Exam Present: soft, normoactive bowel sounds. Absent: tenderness, distended - *Routine Extremities Exam Presen
[2020-10-30 10:13] LABS: Microscopic, Urine URINE MICROSCOPIC (MICROSCOPIC)
[2020-10-30 10:15] LABS: Appearance,Urine CLEAR (Clear); Bilirubin,Urine Negative (Negative); Blood, Urine TRACE-I (Negative); Color,Urine YELLOW (Yellow); Glucose,Urine (UA) Negative (Negative); Ketones,Urine 3+ (Negative); Leukocyte Esterase,Urine Negative (Negative); Nitrate,Urine Negative (Negative); Protein,Urine Negative (Negative); Urobilinogen,Urine 0.2 EU/dl (0.2)
--- NOTE | 2020-10-30 10:23 | DIET.NUTRFU ---
Addendum entered by Azucena Reis 11/02/20 12:42: Pt advanced to soft diet yesterday and states she is tolerating well. She does continue with poor intakes 0-25% + BID supplements. She states she is drinking her shakes and requests V8 with breakfast as well, added to order. Weight is up 10# from admission, she has not had a BM t/o stay. electrolytes continue to decline, V8 may assist with this. Original Note: Pt stated she thinks she is ready to try full liquids, diet advanced after discussion with MD. She continues with BID supplements but poor PO intakes 0-25%. She continues to claim she eats well just not the right things at home despite minimal intakes t/o stay. Continuing to provide diet edu/counseling for malnutrition.
--- NOTE | 2020-10-30 15:27 | PC.NURSE ---
Pt has been pleasant and cooperative this shift. A&O X4. No complaints of pain or SOA. Pt is currently receiving O2 via NC @ 2 LPM with sats. >90%. Lungs CTA. Telemetry reveals NSR. No edema noted. Skin is C/D/I. Pt ambulates with assistance X1. Pt worked with PT today and also sat up in the recliner for several hours. Pt is incontinent and voids clear, yellow urine without issue. No BM thus far this shift. 20 G peripheral IV in the LT forearm is patent and infusing NS @ 100 ML/HR. VSS. Call light within reach. Will continue to monitor.
[2020-10-31] VITALS (9 sets, daily range): BP systolic 124–163; BP diastolic 58–87; PULSE 65–83; RESP 14–18; TEMP 36.6–36.9; O2SAT 92–100; BMI 12.8
[2020-10-31 06:06] LABS: Basophils % 0.1 % (0.1-2.0); Eosinophils % 0.1 % (0.1-12.0); Hematocrit 36.5 % (37.0-47.0); Hemoglobin 11.8 g/dL (12.2-16.2); Lymphocytes # 0.9 K/mm3 (0.7-4.5); Lymphocytes % 5.4 % (10-50); Mean Corpuscular HGB Conc 32.4 g/dL (31.8-35.4); Mean Corpuscular Hemoglobin 30.7 pg (27.0-31.2); Mean Corpuscular Volume 94.7 fl (81-99); Monocytes # 0.7 K/mm3 (0.1-1.0); Monocytes % 3.8 % (1.7-9.3); Neutrophils # 15.7 K/mm3 (1.8-7.8); Neutrophils % 90.5 % (37.0-80.0); Platelet Count 501 K/mm3 (142-424); Red Blood Count 3.86 M/mm3 (4.20-5.40); Red Cell Distribution Width 12.7 % (11.5-17.5); White Blood Count 17.4 K/mm3 (4.8-10.8)
[2020-10-31 06:10] LABS: MANUAL DIFFERENTIAL MANUAL DIFFERENTIAL (MANUAL DIFF)
[2020-10-31 06:24] LABS: Anion Gap 10.3 mEq/L (5-15); Calcium 7.6 mg/dl (8.4-10.2); Carbon Dioxide 34 mmol/L (22.0-30.0); Chloride 87 mmol/L (98-107); Creatinine Clearance Estimated 25 mL/min (50-200); Estimated Glomerular Filt Rate 216 ml/min (>60); GFR (African American) 262 ML/MIN (>60); Glucose 88 mg/dl (74-100); Sodium 129 mmol/L (136-145)
--- NOTE | 2020-10-31 06:26 | PC.NURSE ---
pt has rested well since taking over care, no complaints of pain or SOA, remains on 2L NC, has stated that she will not take any pills this morning until she has food on her belly, no other complaints
[2020-10-31 06:34] LABS: Eosinophils % 3 % (0-3); Lymphocytes % 14 % (10-50); Monocytes % 3 % (2-9); Neutrophils % 73 % (42-76); Total Cells Counted 100
[2020-10-31 06:35] LABS: Platelet Estimate Slight Increase; RBC Morphology Normal
[2020-10-31 06:37] LABS: Blood Urea Nitrogen < 2 mg/dl (7-17); Potassium 2.3 mmoL/L (3.5-5.1)
[2020-10-31 07:15] LABS: Magnesium 1.2 mg/dl (1.6-2.3)
--- NOTE | 2020-10-31 09:14 | HMH.ACPN2 ---
Internal Medicine - PN: Subj *Date: 10/31/20 *Time: 09:14 Interval history: No acute events overnight. Heart rate has remained controlled. She is eager to go home but still remains weak. She did sit up in the chair for a while yesterday. Minimal cough. She is swallowing better. Exam Vital signs and Labs for Last 24 Hours: Temp Pulse Resp BP Pulse Ox 98.2 F 80 16 124/58 L 97 10/31/20 08:00 10/31/20 08:00 10/31/20 08:00 10/31/20 08:00 10/31/20 08:00 Laboratory Results - last 24 hr 10/30/20 09:39: Urine Color Yellow, Urine Appearance Clear, Urine pH 6.0, Ur Specific [place] 1.020, Urine Protein Negative, Urine Glucose (UA) Negative, Urine Ketones 3+, Urine Blood Trace-i, Urine Nitrate Negative, Urine Bilirubin Negative, Urine Urobilinogen 0.2, Ur Leukocyte Esterase Negative, Urine RBC 3-5, Urine WBC 3-5, Ur Squamous Epith Cells 3-5, Urine Bacteria None 10/31/20 05:35: WBC 17.4 H, RBC 3.86 L, Hgb 11.8 L, Hct 36.5 L, MCV 94.7, MCH 30.7, MCHC 32.4, RDW 12.7, Plt Count 501 H, MPV 8.0, Neut % (Auto) 90.5 H, Lymph % (Auto) 5.4 L, [place] % (Auto) 3.8, Eos % (Auto) 0.1, Baso % (Auto) 0.1, Neut # (Auto) 15.7 H, Lymph # (Auto) 0.9, [place] # (Auto) 0.7, Eos # (Auto) 0.0, Baso # (Auto) 0.0, Total Counted 100, Neutrophils % (Manual) 73, Band Neutrophils % 7.0, Lymphocytes % (Manual) 14, Monocytes % (Manual) 3, Eosinophils % (Manual) 3, Platelet Estimate Slight increase, RBC Morphology Normal 10/31/20 05:35: Sodium 129 L, Potassium 2.3 L* D, Chloride 87 L, Carbon Dioxide 34 H, Anion Gap 10.3, BUN < 2 L, Creatinine 0.30 L, Estimated Creat Clear 25, Estimated GFR 216, Est GFR ( Amer) 262, Glucose 88 D, Calcium 7.6 L 10/31/20 05:35: Magnesium 1.2 L I & O for Last 24 hours: Intake & Output 10/28/20 10/29/20 10/30/20 10/31/20 11:59 11:59 11:59 11:59 Intake Total 180 / 180 969 / 969 549 / 549 3275 / 3275 Output Total 200 / 200 0 / 0 1100 / 1100 1375 / 1375 Balance -20 / -20 969 / 969 -551 / -551 1900 / 1900 Weight 74 lb 1 oz 69 lb 9 oz 72 lb 4 oz Microbiology Reports for the Last 24 Hours: Microbiology 10/25/20 17:10 Blood Blood Culture - Final NO GROWTH AFTER 5 DAYS 10/25/20 17:10 Blood Blood Culture - Final NO GROWTH AFTER 5 DAYS 10/28/20 09:40 Sputum - Expectorated Sputum Gram Stain - Final 10/28/20 09:40 Sputum - Expectorated Sputum Sputum Culture - Preliminary Narrative: Appears weak and frail. No respiratory distress. Breath sounds are generally diminished heart regular. Abdomen is thin, soft, nondistended. Extremities no edema. Assessment and Plan (1) Non-STEMI (non-ST elevated myocardial infarction) Status: Acute Category: Medical Code(s): I21.4 - Non-ST elevation (NSTEMI) myocardial infarction (2) Atrial fibrillation with rapid ventricular response Status: Resolved Category: Medical Code(s): I48.91 - Unspecified atrial fibrillation (3) Elevated troponin Status: Acute Category: Medical Code(s): R77.8 - Other specified abnormalities of plasma proteins (4) Unstable angina Status: Resolved Category: Medical Code(s): I20.0 - Unstable angina (5) Community acquired pneumonia Status: Acute Qualifiers: Laterality: right Lung location: lower lobe of lung Qualified Code(s): J18.9 - Pneumonia, unspecified organism Category: Medical Code(s): J18.9 - Pneumonia, unspecified organism (6) Respiratory failure with hypoxia Status: Acute Qualifiers: Chronicity: acute Qualified Code(s): J96.01 - Acute respiratory failure with hypoxia Category: Medical Code(s): J96.91 - Respiratory failure, unspecified with hypoxia (7) CAD (coronary artery disease) Status: Chronic Category: Medical Code(s): I25.10 - Atherosclerotic heart disease of [place] coronary artery without angina pectoris (8) Hx of CABG Status: Chronic Category: Surgical Code(s): Z95.1 - Presence of aortocoronar
--- NOTE | 2020-10-31 09:57 | HMH.GSPN ---
Subjective Narrative: Patient states that her swallowing is a lot better . Progress Note: A&P (1) Non-STEMI (non-ST elevated myocardial infarction) Status: Acute (2) Atrial fibrillation with rapid ventricular response Status: Resolved (3) Elevated troponin Status: Acute (4) Unstable angina Status: Resolved (5) Community acquired pneumonia Status: Acute (6) Respiratory failure with hypoxia Status: Acute (7) CAD (coronary artery disease) Status: Chronic (8) Hx of CABG Status: Chronic (9) HTN (hypertension) Status: Chronic (10) COPD (chronic obstructive pulmonary disease) Status: Acute (11) Dysphagia Status: Acute Assessment and plan: Continue fluconazole. May be able to slowly advance diet (12) Esophageal candidiasis Status: Acute (13) Malnutrition Status: Acute (14) Hypokalemia Status: Acute (15) Hypomagnesemia Status: Acute Exam Vital signs and Labs for Last 24 Hours: Temp Pulse Resp BP Pulse Ox 98.2 F 80 16 124/58 L 97 10/31/20 08:00 10/31/20 08:00 10/31/20 08:00 10/31/20 08:00 10/31/20 08:00 Laboratory Results - last 24 hr 10/30/20 09:39: Urine Color Yellow, Urine Appearance Clear, Urine pH 6.0, Ur Specific [place] 1.020, Urine Protein Negative, Urine Glucose (UA) Negative, Urine Ketones 3+, Urine Blood Trace-i, Urine Nitrate Negative, Urine Bilirubin Negative, Urine Urobilinogen 0.2, Ur Leukocyte Esterase Negative, Urine RBC 3-5, Urine WBC 3-5, Ur Squamous Epith Cells 3-5, Urine Bacteria None 10/31/20 05:35: WBC 17.4 H, RBC 3.86 L, Hgb 11.8 L, Hct 36.5 L, MCV 94.7, MCH 30.7, MCHC 32.4, RDW 12.7, Plt Count 501 H, MPV 8.0, Neut % (Auto) 90.5 H, Lymph % (Auto) 5.4 L, [place] % (Auto) 3.8, Eos % (Auto) 0.1, Baso % (Auto) 0.1, Neut # (Auto) 15.7 H, Lymph # (Auto) 0.9, [place] # (Auto) 0.7, Eos # (Auto) 0.0, Baso # (Auto) 0.0, Total Counted 100, Neutrophils % (Manual) 73, Band Neutrophils % 7.0, Lymphocytes % (Manual) 14, Monocytes % (Manual) 3, Eosinophils % (Manual) 3, Platelet Estimate Slight increase, RBC Morphology Normal 10/31/20 05:35: Sodium 129 L, Potassium 2.3 L* D, Chloride 87 L, Carbon Dioxide 34 H, Anion Gap 10.3, BUN < 2 L, Creatinine 0.30 L, Estimated Creat Clear 25, Estimated GFR 216, Est GFR ( Amer) 262, Glucose 88 D, Calcium 7.6 L 10/31/20 05:35: Magnesium 1.2 L I & O for Last 24 hours: Intake & Output 10/28/20 10/29/20 10/30/20 10/31/20 11:59 11:59 11:59 11:59 Intake Total 180 / 180 969 / 969 549 / 549 3275 / 3275 Output Total 200 / 200 0 / 0 1100 / 1100 1375 / 1375 Balance -20 / -20 969 / 969 -551 / -551 1900 / 1900 Weight 74 lb 1 oz 69 lb 9 oz 72 lb 4 oz Microbiology Reports for the Last 24 Hours: Microbiology 10/25/20 17:10 Blood Blood Culture - Final NO GROWTH AFTER 5 DAYS 10/25/20 17:10 Blood Blood Culture - Final NO GROWTH AFTER 5 DAYS 10/28/20 09:40 Sputum - Expectorated Sputum Gram Stain - Final 10/28/20 09:40 Sputum - Expectorated Sputum Sputum Culture - Preliminary - Constitutional no acute distress
--- NOTE | 2020-10-31 15:18 | PC.NURSE ---
Pt has been pleasant and cooperative this shift. A&O X4. No complaints of pain or SOA. Pt is currently on room air with sats. >90%. Lungs CTA. Telemetry reveals NSR. No edema noted. Skin is C/D/I. Pt ambulates with assistance X1 and sat up in the recliner today. Pt is incontinent and voids clear, yellow urine without issue. No BM thus far this shift. 20 G peripheral IV in the LT forearm is patent and infusing NS @ 100 ML/HR. VSS. Call light within reach. Will continue to monitor.
[2020-11-01] VITALS (10 sets, daily range): BP systolic 156–169; BP diastolic 60–83; PULSE 70–95; RESP 16–18; TEMP 36.6–37.2; O2SAT 90–100; BMI 13.8
--- NOTE | 2020-11-01 03:00 | PC.NURSE ---
No acute changes this shift. Pt is A/O x4. Pt c/o of pain x1 this shift admin meds per MAR with favorable results. Pt denies any N/V. Pure wick in place draining clear, yellow urine. Pt remains on 2L NC with stats >95% t/o shift. Will continue to monitor.
[2020-11-01 07:48] LABS: Basophils % 0.2 % (0.1-2.0); Eosinophils # 0.1 K/mm3 (0.0-0.4); Eosinophils % 0.3 % (0.1-12.0); Hematocrit 37.9 % (37.0-47.0); Hemoglobin 12.2 g/dL (12.2-16.2); Lymphocytes # 1.3 K/mm3 (0.7-4.5); Mean Corpuscular HGB Conc 32.3 g/dL (31.8-35.4); Mean Corpuscular Hemoglobin 30.7 pg (27.0-31.2); Mean Corpuscular Volume 95.2 fl (81-99); Mean Platelet Volume 8.2 fl (7.4-10.4); Monocytes # 0.5 K/mm3 (0.1-1.0); Neutrophils % 89.5 % (37.0-80.0); Platelet Count 600 K/mm3 (142-424); Red Blood Count 3.97 M/mm3 (4.20-5.40); Red Cell Distribution Width 12.9 % (11.5-17.5); White Blood Count 17.8 K/mm3 (4.8-10.8)
[2020-11-01 07:49] LABS: MANUAL DIFFERENTIAL MANUAL DIFFERENTIAL (MANUAL DIFF)
[2020-11-01 07:59] LABS: Anion Gap 10.2 mEq/L (5-15); Blood Urea Nitrogen 2 mg/dl (7-17); Calcium 7.8 mg/dl (8.4-10.2); Carbon Dioxide 34 mmol/L (22.0-30.0); Chloride 86 mmol/L (98-107); Creatinine Clearance Estimated 27 mL/min (50-200); Estimated Glomerular Filt Rate 345 ml/min (>60); GFR (African American) 418 ML/MIN (>60); Glucose 87 mg/dl (74-100); Magnesium 1.4 mg/dl (1.6-2.3); Potassium 3.2 mmoL/L (3.5-5.1); Sodium 127 mmol/L (136-145)
[2020-11-01 08:23] LABS: Eosinophils % 1 % (0-3); Lymphocytes % 6 % (10-50); Monocytes % 3 % (2-9); Neutrophils % 90 % (42-76); Platelet Estimate Marked Increase; RBC Morphology Normal; Total Cells Counted 100
--- NOTE | 2020-11-01 08:50 | HMH.ACPN2 ---
Internal Medicine - PN: Subj *Date: 11/01/20 *Time: 08:50 Interval history: She rested well overnight. No respiratory difficulties. I am just weak . She has been up in the chair some. She states her swallowing is better. She does not like the full liquid diet and would like to have her diet advanced. She has still not had a bowel movement. Exam Vital signs and Labs for Last 24 Hours: Temp Pulse Resp BP Pulse Ox 98.5 F 83 16 161/83 H 100 11/01/20 08:00 11/01/20 08:00 11/01/20 08:00 11/01/20 08:00 11/01/20 08:00 Laboratory Results - last 24 hr 11/01/20 06:37: WBC 17.8 H, RBC 3.97 L, Hgb 12.2, Hct 37.9, MCV 95.2, MCH 30.7, MCHC 32.3, RDW 12.9, Plt Count 600 H, MPV 8.2, Neut % (Auto) 89.5 H, Lymph % (Auto) 7.0 L, [place] % (Auto) 3.0, Eos % (Auto) 0.3, Baso % (Auto) 0.2, Neut # (Auto) 16.0 H, Lymph # (Auto) 1.3, [place] # (Auto) 0.5, Eos # (Auto) 0.1, Baso # (Auto) 0.0, Total Counted 100, Neutrophils % (Manual) 90 H, Lymphocytes % (Manual) 6 L, Monocytes % (Manual) 3, Eosinophils % (Manual) 1, Platelet Estimate Marked increase, RBC Morphology Normal 11/01/20 06:37: Sodium 127 L, Potassium 3.2 L D, Chloride 86 L, Carbon Dioxide 34 H, Anion Gap 10.2, BUN 2 L, Creatinine 0.20 L D, Estimated Creat Clear 27, Estimated GFR 345, Est GFR ( Amer) 418 D, Glucose 87, Calcium 7.8 L, Magnesium 1.4 L D I & O for Last 24 hours: Intake & Output 10/29/20 10/30/20 10/31/20 11/01/20 11:59 11:59 11:59 11:59 Intake Total 969 / 969 549 / 549 3275 / 3275 3150 / 3150 Output Total 0 / 0 1100 / 1100 1375 / 1375 1225 / 1225 Balance 969 / 969 -551 / -551 1900 / 1900 1925 / 1925 Weight 74 lb 1 oz 69 lb 9 oz 72 lb 4 oz 78 lb 6 oz Microbiology Reports for the Last 24 Hours: Microbiology 10/28/20 09:40 Sputum - Expectorated Sputum Gram Stain - Final 10/28/20 09:40 Sputum - Expectorated Sputum Sputum Culture - Final Normal Respiratory [place] Narrative: Alert and oriented. No respiratory distress. Coarse breath sounds with bibasilar rales. No wheezes. Abdomen is thin soft and nontender. Extremities no edema. Assessment and Plan (1) Non-STEMI (non-ST elevated myocardial infarction) Status: Acute Category: Medical Code(s): I21.4 - Non-ST elevation (NSTEMI) myocardial infarction (2) Atrial fibrillation with rapid ventricular response Status: Resolved Category: Medical Code(s): I48.91 - Unspecified atrial fibrillation (3) Elevated troponin Status: Acute Category: Medical Code(s): R77.8 - Other specified abnormalities of plasma proteins (4) Unstable angina Status: Resolved Category: Medical Code(s): I20.0 - Unstable angina (5) Community acquired pneumonia Status: Acute Qualifiers: Laterality: right Lung location: lower lobe of lung Qualified Code(s): J18.9 - Pneumonia, unspecified organism Category: Medical Code(s): J18.9 - Pneumonia, unspecified organism (6) Respiratory failure with hypoxia Status: Acute Qualifiers: Chronicity: acute Qualified Code(s): J96.01 - Acute respiratory failure with hypoxia Category: Medical Code(s): J96.91 - Respiratory failure, unspecified with hypoxia (7) CAD (coronary artery disease) Status: Chronic Category: Medical Code(s): I25.10 - Atherosclerotic heart disease of [place] coronary artery without angina pectoris (8) Hx of CABG Status: Chronic Category: Surgical Code(s): Z95.1 - Presence of aortocoronary bypass graft (9) HTN (hypertension) Status: Chronic Qualifiers: Hypertension type: primary hypertension Qualified Code(s): I10 - Essential (primary) hypertension Category: Medical Code(s): I10 - Essential (primary) hypertension (10) COPD (chronic obstructive pulmonary disease) Status: Acute Category: Medical Code(s): J44.9 - Chronic obstructive pulmonary disease, unspecified (11) Dysphagia Status: Acute Category: Medical Code(s): R13.10 -
--- NOTE | 2020-11-01 10:10 | HMH.GSPN ---
Subjective Narrative: Patient states that she feels a bit tired after her sleeping medication last night. No other complaints. Tolerating full liquid diet without swallowing issues but does want more substantial food. Progress Note: A&P (1) Non-STEMI (non-ST elevated myocardial infarction) Status: Acute (2) Atrial fibrillation with rapid ventricular response Status: Resolved (3) Elevated troponin Status: Acute (4) Unstable angina Status: Resolved (5) Community acquired pneumonia Status: Acute (6) Respiratory failure with hypoxia Status: Acute (7) CAD (coronary artery disease) Status: Chronic (8) Hx of CABG Status: Chronic (9) HTN (hypertension) Status: Chronic (10) COPD (chronic obstructive pulmonary disease) Status: Acute (11) Dysphagia Status: Acute Assessment and plan: Advance to soft diet today. (12) Esophageal candidiasis Status: Acute (13) Malnutrition Status: Acute (14) Hypokalemia Status: Acute (15) Hypomagnesemia Status: Acute (16) Constipation Status: Acute Exam Vital signs and Labs for Last 24 Hours: Temp Pulse Resp BP Pulse Ox 98.5 F 83 16 161/83 H 100 11/01/20 08:00 11/01/20 08:00 11/01/20 08:00 11/01/20 08:00 11/01/20 08:00 Laboratory Results - last 24 hr 11/01/20 06:37: WBC 17.8 H, RBC 3.97 L, Hgb 12.2, Hct 37.9, MCV 95.2, MCH 30.7, MCHC 32.3, RDW 12.9, Plt Count 600 H, MPV 8.2, Neut % (Auto) 89.5 H, Lymph % (Auto) 7.0 L, [place] % (Auto) 3.0, Eos % (Auto) 0.3, Baso % (Auto) 0.2, Neut # (Auto) 16.0 H, Lymph # (Auto) 1.3, [place] # (Auto) 0.5, Eos # (Auto) 0.1, Baso # (Auto) 0.0, Total Counted 100, Neutrophils % (Manual) 90 H, Lymphocytes % (Manual) 6 L, Monocytes % (Manual) 3, Eosinophils % (Manual) 1, Platelet Estimate Marked increase, RBC Morphology Normal 11/01/20 06:37: Sodium 127 L, Potassium 3.2 L D, Chloride 86 L, Carbon Dioxide 34 H, Anion Gap 10.2, BUN 2 L, Creatinine 0.20 L D, Estimated Creat Clear 27, Estimated GFR 345, Est GFR ( Amer) 418 D, Glucose 87, Calcium 7.8 L, Magnesium 1.4 L D I & O for Last 24 hours: Intake & Output 10/29/20 10/30/20 10/31/20 11/01/20 11:59 11:59 11:59 11:59 Intake Total 969 / 969 549 / 549 3275 / 3275 3150 / 3150 Output Total 0 / 0 1100 / 1100 1375 / 1375 1225 / 1225 Balance 969 / 969 -551 / -551 1900 / 1900 1925 / 1925 Weight 74 lb 1 oz 69 lb 9 oz 72 lb 4 oz 78 lb 6 oz Microbiology Reports for the Last 24 Hours: Microbiology 10/28/20 09:40 Sputum - Expectorated Sputum Gram Stain - Final 10/28/20 09:40 Sputum - Expectorated Sputum Sputum Culture - Final Normal Respiratory Cleopatra
--- NOTE | 2020-11-01 15:41 | PC.NURSE ---
Pt has been pleasant and cooperative this shift. A&O X4. No complaints of pain or SOA. Pt is currently receiving O2 via NC @ 1 LPM with sats. >90%. Lungs CTA. Telemetry reveals NSR. No edema noted. Skin is C/D/I. Pt ambulates with assistance X1 and sat up in the recliner today. Pt is incontinent and voids clear, yellow urine without issue. No BM thus far this shift. 20 G peripheral IV in the LT forearm is patent and infusing NS @ 100 ML/HR. VSS. Call light within reach. Will continue to monitor.
[2020-11-02] VITALS (9 sets, daily range): BP systolic 102–173; BP diastolic 63–84; PULSE 60–96; RESP 16–20; TEMP 36.6–37.1; O2SAT 90–99; BMI 13.8
--- NOTE | 2020-11-02 03:10 | PC.NURSE ---
No acute changes overnight. pt A&O. no c/o pain this shift. pt able to tolerate diet well. Pt on 1L NC, lungs CTA. Pt able to make needs known to staff. VS, call light in reach, no concerns at this time.
[2020-11-02 06:52] LABS: Basophils % 0.2 % (0.1-2.0); Eosinophils # 0.1 K/mm3 (0.0-0.4); Eosinophils % 0.4 % (0.1-12.0); Hematocrit 40.6 % (37.0-47.0); Hemoglobin 13.4 g/dL (12.2-16.2); Lymphocytes # 0.6 K/mm3 (0.7-4.5); Lymphocytes % 3.9 % (10-50); Mean Corpuscular HGB Conc 33.1 g/dL (31.8-35.4); Mean Corpuscular Hemoglobin 31.3 pg (27.0-31.2); Mean Corpuscular Volume 94.6 fl (81-99); Mean Platelet Volume 7.5 fl (7.4-10.4); Monocytes # 0.5 K/mm3 (0.1-1.0); Monocytes % 3.2 % (1.7-9.3); Neutrophils # 15.3 K/mm3 (1.8-7.8); Neutrophils % 92.3 % (37.0-80.0); Platelet Count 640 K/mm3 (142-424); Red Blood Count 4.29 M/mm3 (4.20-5.40); Red Cell Distribution Width 12.9 % (11.5-17.5); White Blood Count 16.5 K/mm3 (4.8-10.8)
[2020-11-02 07:25] LABS: Calcium 7.9 mg/dl (8.4-10.2); Chloride 80 mmol/L (98-107); Creatinine Clearance Estimated 27 mL/min (50-200); Estimated Glomerular Filt Rate 216 ml/min (>60); GFR (African American) 262 ML/MIN (>60); Glucose 116 mg/dl (74-100); Sodium 127 mmol/L (136-145)
[2020-11-02 07:28] LABS: MANUAL DIFFERENTIAL MANUAL DIFFERENTIAL (MANUAL DIFF)
[2020-11-02 07:32] LABS: Anion Gap 10.7 mEq/L (5-15); Carbon Dioxide 39 mmol/L (22.0-30.0)
[2020-11-02 08:02] LABS: Blood Urea Nitrogen < 2 mg/dl (7-17)
[2020-11-02 08:04] LABS: Potassium 2.7 mmoL/L (3.5-5.1)
[2020-11-02 08:35] LABS: Eosinophils % 1 % (0-3); Lymphocytes % 7 % (10-50); Monocytes % 3 % (2-9); Neutrophils % 89 % (42-76); Total Cells Counted 100
[2020-11-02 08:36] LABS: Hypochromasia 1+; Macrocytosis 1+; Platelet Estimate Normal
--- NOTE | 2020-11-02 08:53 | PC.NURSE ---
Dr. Canseco on floor and made aware of critical K of 2.7. New orders to be put in via .
--- NOTE | 2020-11-02 10:13 | HMH.ACPN2 ---
Internal Medicine - PN: Subj *Date: 11/02/20 *Time: 10:13 Interval history: No new complaints. She is tolerating her soft diet. She finally had a large bowel movement. Exam Vital signs and Labs for Last 24 Hours: Temp Pulse Resp BP Pulse Ox 98.6 F 95 H 20 159/73 H 92 L 11/02/20 08:00 11/02/20 08:00 11/02/20 08:00 11/02/20 08:00 11/02/20 08:00 Laboratory Results - last 24 hr 11/02/20 06:43: WBC 16.5 H, RBC 4.29, Hgb 13.4, Hct 40.6, MCV 94.6, MCH 31.3 H, MCHC 33.1, RDW 12.9, Plt Count 640 H, MPV 7.5, Neut % (Auto) 92.3 H, Lymph % (Auto) 3.9 L, [place] % (Auto) 3.2, Eos % (Auto) 0.4, Baso % (Auto) 0.2, Neut # (Auto) 15.3 H, Lymph # (Auto) 0.6 L, [place] # (Auto) 0.5, Eos # (Auto) 0.1, Baso # (Auto) 0.0, Total Counted 100, Neutrophils % (Manual) 89 H, Lymphocytes % (Manual) 7 L, Monocytes % (Manual) 3, Eosinophils % (Manual) 1, Platelet Estimate Normal, Hypochromasia 1+, Macrocytosis 1+ 11/02/20 06:43: Sodium 127 L, Potassium 2.7 L*, Chloride 80 L, Carbon Dioxide 39 H, Anion Gap 10.7, BUN < 2 L, Creatinine 0.30 L D, Estimated Creat Clear 27, Estimated GFR 216, Est GFR ( Amer) 262 D, Glucose 116 H, Calcium 7.9 L I & O for Last 24 hours: Intake & Output 10/30/20 10/31/20 11/01/20 11/02/20 11:59 11:59 11:59 11:59 Intake Total 549 / 549 3275 / 3275 3270 / 3270 1740 / 1740 Output Total 1100 / 1100 1375 / 1375 1625 / 1625 1500 / 1500 Balance -551 / -551 1900 / 1900 1645 / 1645 240 / 240 Weight 69 lb 9 oz 72 lb 4 oz 78 lb 6 oz 78 lb 8 oz Narrative: Affect seems a bit flat today. Chest with bibasilar rales. Heart is regular. Abdomen soft, nondistended, nontender. Extremities no edema. She has some bruising on her arms. Assessment and Plan (1) Non-STEMI (non-ST elevated myocardial infarction) Status: Acute Category: Medical Code(s): I21.4 - Non-ST elevation (NSTEMI) myocardial infarction (2) Atrial fibrillation with rapid ventricular response Status: Resolved Category: Medical Code(s): I48.91 - Unspecified atrial fibrillation (3) Elevated troponin Status: Acute Category: Medical Code(s): R77.8 - Other specified abnormalities of plasma proteins (4) Unstable angina Status: Resolved Category: Medical Code(s): I20.0 - Unstable angina (5) Community acquired pneumonia Status: Acute Qualifiers: Laterality: right Lung location: lower lobe of lung Qualified Code(s): J18.9 - Pneumonia, unspecified organism Category: Medical Code(s): J18.9 - Pneumonia, unspecified organism (6) Respiratory failure with hypoxia Status: Acute Qualifiers: Chronicity: acute Qualified Code(s): J96.01 - Acute respiratory failure with hypoxia Category: Medical Code(s): J96.91 - Respiratory failure, unspecified with hypoxia (7) CAD (coronary artery disease) Status: Chronic Category: Medical Code(s): I25.10 - Atherosclerotic heart disease of [place] coronary artery without angina pectoris (8) Hx of CABG Status: Chronic Category: Surgical Code(s): Z95.1 - Presence of aortocoronary bypass graft (9) HTN (hypertension) Status: Chronic Qualifiers: Hypertension type: primary hypertension Qualified Code(s): I10 - Essential (primary) hypertension Category: Medical Code(s): I10 - Essential (primary) hypertension (10) COPD (chronic obstructive pulmonary disease) Status: Acute Category: Medical Code(s): J44.9 - Chronic obstructive pulmonary disease, unspecified (11) Dysphagia Status: Acute Category: Medical Code(s): R13.10 - Dysphagia, unspecified (12) Esophageal candidiasis Status: Acute Category: Medical Code(s): B37.81 - Candidal esophagitis (13) Malnutrition Status: Acute Category: Medical Code(s): E46 - Unspecified protein-calorie malnutrition (14) Hypokalemia Status: Acute Category: Medical Code(s): E87.6 - Hypokalemia (15) Hypomagnesemia Status: Acute Category: Medical Code(s): E83.42 - Hypomagnes
--- NOTE | 2020-11-02 12:10 | PC.NURSE ---
Pts meds late per mar, because pt refused to take until documented times.
--- NOTE | 2020-11-02 19:16 | PC.NURSE ---
Pt alert and oriented. No acute changes. VSS. Meds given per apr. CB in reach.
[2020-11-03] VITALS (13 sets, daily range): BP systolic 128–155; BP diastolic 58–80; PULSE 58–80; RESP 12–20; TEMP 36.6–37.1; O2SAT 90–97; BMI 12.5
--- NOTE | 2020-11-03 02:27 | PC.NURSE ---
Addendum entered by Laura Wright RN 11/03/20 03:59: Patient placed back on 1LNC at this time due to low oxygen saturation. Patient denies any shortness of breath. Original Note: Patient is alert and oriented x4. Patient is currently on room air and maintaining oxygen saturations above 90%. Patient has had no acute changes this shift. VSS, call light within reach, will continue to monitor.
[2020-11-03 06:53] LABS: Basophils % 0.1 % (0.1-2.0); Eosinophils % 0.2 % (0.1-12.0); Hematocrit 39.4 % (37.0-47.0); Hemoglobin 12.4 g/dL (12.2-16.2); Lymphocytes # 0.8 K/mm3 (0.7-4.5); Lymphocytes % 5.3 % (10-50); Mean Corpuscular HGB Conc 31.5 g/dL (31.8-35.4); Mean Corpuscular Hemoglobin 30.5 pg (27.0-31.2); Mean Corpuscular Volume 96.8 fl (81-99); Mean Platelet Volume 7.3 fl (7.4-10.4); Monocytes # 0.5 K/mm3 (0.1-1.0); Monocytes % 3.3 % (1.7-9.3); Neutrophils # 13.3 K/mm3 (1.8-7.8); Platelet Count 703 K/mm3 (142-424); Red Blood Count 4.07 M/mm3 (4.20-5.40); Red Cell Distribution Width 12.9 % (11.5-17.5); White Blood Count 14.6 K/mm3 (4.8-10.8)
[2020-11-03 06:57] LABS: MANUAL DIFFERENTIAL MANUAL DIFFERENTIAL (MANUAL DIFF)
[2020-11-03 07:05] LABS: Anion Gap 7.7 mEq/L (5-15); Blood Urea Nitrogen 4 mg/dl (7-17); Calcium 8.1 mg/dl (8.4-10.2); Carbon Dioxide 39 mmol/L (22.0-30.0); Chloride 83 mmol/L (98-107); Creatinine Clearance Estimated 24 mL/min (50-200); Estimated Glomerular Filt Rate 216 ml/min (>60); GFR (African American) 262 ML/MIN (>60); Glucose 121 mg/dl (74-100); Potassium 3.7 mmoL/L (3.5-5.1); Sodium 126 mmol/L (136-145)
[2020-11-03 07:57] LABS: Lymphocytes % 5 % (10-50); Monocytes % 4 % (2-9); Neutrophils % 91 % (42-76); Platelet Estimate Normal; RBC Morphology Normal; Total Cells Counted 100
--- NOTE | 2020-11-03 08:05 | HMH.ACPN2 ---
<Rina Mahajan - Last Filed: 11/03/20 08:20> Internal Medicine - PN: Subj *Date: 11/03/20 *Time: 08:20 Interval history: Patient states she had a rough day yesterday but cannot tell me why. She feels better today. She is hungry and is going to try to eat more breakfast. She loves her coffee. She denies chest pain and shortness of breath and any pain any where . She did not sit up in the chair yesterday but did the day before. Oxygen had to be restarted due to low sats last night and she remains at 1 L/min. She denies any difficulty with swallowing. Her bowels have moved and she is voiding QS. Exam Vital signs and Labs for Last 24 Hours: Temp Pulse Resp BP Pulse Ox 98.3 F 75 20 155/78 H 93 L 11/03/20 04:00 11/03/20 06:07 11/03/20 04:00 11/03/20 04:00 11/03/20 06:07 Laboratory Results - last 24 hr 11/02/20 06:43: Total Counted 100, Neutrophils % (Manual) 89 H, Lymphocytes % (Manual) 7 L, Monocytes % (Manual) 3, Eosinophils % (Manual) 1, Platelet Estimate Normal, Hypochromasia 1+, Macrocytosis 1+ 11/03/20 06:05: WBC 14.6 H, RBC 4.07 L, Hgb 12.4, Hct 39.4, MCV 96.8, MCH 30.5, MCHC 31.5 L, RDW 12.9, Plt Count 703 H, MPV 7.3 L, Neut % (Auto) 91.0 H, Lymph % (Auto) 5.3 L, [place] % (Auto) 3.3, Eos % (Auto) 0.2, Baso % (Auto) 0.1, Neut # (Auto) 13.3 H, Lymph # (Auto) 0.8, [place] # (Auto) 0.5, Eos # (Auto) 0.0, Baso # (Auto) 0.0, Total Counted 100, Neutrophils % (Manual) 91 H, Lymphocytes % (Manual) 5 L, Monocytes % (Manual) 4, Platelet Estimate Normal, RBC Morphology Normal 11/03/20 06:05: Sodium 126 L, Potassium 3.7 D, Chloride 83 L, Carbon Dioxide 39 H, Anion Gap 7.7, BUN 4 L D, Creatinine 0.30 L, Estimated Creat Clear 24, Estimated GFR 216, Est GFR ( Amer) 262, Glucose 121 H, Calcium 8.1 L I & O for Last 24 hours: Intake & Output 10/31/20 11/01/20 11/02/20 11/03/20 11:59 11:59 11:59 11:59 Intake Total 3275 / 3275 3270 / 3270 1740 / 1740 460 / 460 Output Total 1375 / 1375 1625 / 1625 1500 / 1500 1150 / 1150 Balance 1900 / 1900 1645 / 1645 240 / 240 -690 / -690 Weight 72 lb 4 oz 78 lb 6 oz 78 lb 8 oz 71 lb - Constitutional no acute distress, thin Comments: Sitting up in the bed and is eating breakfast. - *Routine Respiratory Exam Present: rhonchi (Bilateral posteriorly) - *Routine Cardiovascular Exam Present: RRR - *Routine Abdominal Exam Present: soft, normoactive bowel sounds. Absent: tenderness - *Routine Extremities Exam Absent: edema, calf tenderness - *Routine Neurological Exam Present: alert, oriented X3 Assessment and Plan (1) Non-STEMI (non-ST elevated myocardial infarction) Status: Acute Category: Medical Code(s): I21.4 - Non-ST elevation (NSTEMI) myocardial infarction (2) Atrial fibrillation with rapid ventricular response Status: Resolved Category: Medical Code(s): I48.91 - Unspecified atrial fibrillation (3) Elevated troponin Status: Acute Category: Medical Code(s): R77.8 - Other specified abnormalities of plasma proteins (4) Unstable angina Status: Resolved Category: Medical Code(s): I20.0 - Unstable angina (5) Community acquired pneumonia Status: Acute Qualifiers: Laterality: right Lung location: lower lobe of lung Qualified Code(s): J18.9 - Pneumonia, unspecified organism Category: Medical Code(s): J18.9 - Pneumonia, unspecified organism (6) Respiratory failure with hypoxia Status: Acute Qualifiers: Chronicity: acute Qualified Code(s): J96.01 - Acute respiratory failure with hypoxia Category: Medical Code(s): J96.91 - Respiratory failure, unspecified with hypoxia (7) CAD (coronary artery disease) Status: Chronic Category: Medical Code(s): I25.10 - Atherosclerotic heart disease of [place] coronary artery without angina pectoris (8) Hx of CABG Status: Chronic Category: Surgical Code(s): Z95.1 - Presence of aortocoronary bypass graft (9) HTN (hypertension) Status: Chronic Qualifiers:
[2020-11-04] VITALS (7 sets, daily range): BP systolic 116–138; BP diastolic 56–68; PULSE 59–83; RESP 14–20; TEMP 36.8–37.1; O2SAT 86–94; BMI 12.6
--- NOTE | 2020-11-04 03:14 | PC.NURSE ---
Pt is A/O x4. no acute t/o night. Pt remains on 1L NC with stats >90%. Pt denies any SOA or pain. Pt c/o of nausea x1 this shift admin meds per MAR with relief. Pure wick and brief in place. VSS, call light within reach. Will continue to monitor.
--- NOTE | 2020-11-04 08:15 | HMH.ACPN2 ---
<Veronica Justin - Last Filed: 11/04/20 08:15> Internal Medicine - PN: Subj *Date: 11/04/20 *Time: 08:15 Interval history: Patient states she is feeling a little bit better today. She is still weak. She slept all night and was very hungry and ate most all of her breakfast this morning. She states she discussed rehab placement with her family and they are against that and want her to come home. Exam Vital signs and Labs for Last 24 Hours: Temp Pulse Resp BP Pulse Ox 98.7 F 60 16 137/63 91 L 11/04/20 04:00 11/04/20 06:04 11/04/20 04:00 11/04/20 04:00 11/04/20 04:00 I & O for Last 24 hours: Intake & Output 11/01/20 11/02/20 11/03/20 11/04/20 11:59 11:59 11:59 11:59 Intake Total 3270 / 3270 1740 / 1740 580 / 580 180 / 180 Output Total 1625 / 1625 1500 / 1500 1150 / 1150 650 / 650 Balance 1645 / 1645 240 / 240 -570 / -570 -470 / -470 Weight 78 lb 6 oz 78 lb 8 oz 71 lb 71 lb 2 oz - Constitutional no acute distress - *Routine Respiratory Exam Present: CTA bilaterally - *Routine Cardiovascular Exam Present: RRR - *Routine Abdominal Exam Present: soft, normoactive bowel sounds. Absent: tenderness - *Routine Extremities Exam Absent: cyanosis, clubbing, edema - *Routine Skin Exam Present: warm. Absent: rash - *Routine Neurological Exam Present: alert, oriented X3 Assessment and Plan (1) Non-STEMI (non-ST elevated myocardial infarction) Status: Acute Category: Medical Code(s): I21.4 - Non-ST elevation (NSTEMI) myocardial infarction (2) Atrial fibrillation with rapid ventricular response Status: Resolved Category: Medical Code(s): I48.91 - Unspecified atrial fibrillation (3) Elevated troponin Status: Acute Category: Medical Code(s): R77.8 - Other specified abnormalities of plasma proteins (4) Unstable angina Status: Resolved Category: Medical Code(s): I20.0 - Unstable angina (5) Community acquired pneumonia Status: Acute Qualifiers: Laterality: right Lung location: lower lobe of lung Qualified Code(s): J18.9 - Pneumonia, unspecified organism Category: Medical Code(s): J18.9 - Pneumonia, unspecified organism (6) Respiratory failure with hypoxia Status: Acute Qualifiers: Chronicity: acute Qualified Code(s): J96.01 - Acute respiratory failure with hypoxia Category: Medical Code(s): J96.91 - Respiratory failure, unspecified with hypoxia (7) CAD (coronary artery disease) Status: Chronic Category: Medical Code(s): I25.10 - Atherosclerotic heart disease of [place] coronary artery without angina pectoris (8) Hx of CABG Status: Chronic Category: Surgical Code(s): Z95.1 - Presence of aortocoronary bypass graft (9) HTN (hypertension) Status: Chronic Qualifiers: Hypertension type: primary hypertension Qualified Code(s): I10 - Essential (primary) hypertension Category: Medical Code(s): I10 - Essential (primary) hypertension (10) COPD (chronic obstructive pulmonary disease) Status: Acute Category: Medical Code(s): J44.9 - Chronic obstructive pulmonary disease, unspecified (11) Dysphagia Status: Acute Category: Medical Code(s): R13.10 - Dysphagia, unspecified (12) Esophageal candidiasis Status: Acute Category: Medical Code(s): B37.81 - Candidal esophagitis (13) Malnutrition Status: Acute Category: Medical Code(s): E46 - Unspecified protein-calorie malnutrition (14) Hypokalemia Status: Acute Category: Medical Code(s): E87.6 - Hypokalemia (15) Hypomagnesemia Status: Acute Category: Medical Code(s): E83.42 - Hypomagnesemia (16) Constipation Status: Acute Category: Medical Code(s): K59.00 - Constipation, unspecified (17) Severe protein-calorie malnutrition Status: Acute Category: Medical Code(s): E43 - Unspecified severe protein-calorie malnutrition (18) Cachexia Status: Acute Category: Medical Code(s): R64 - Cachexia - Assess
--- NOTE | 2020-11-04 13:15 | HMH.PHACLD ---
Rupa Hassan has received discharge medication counseling on the following medications: XARELTO 15MG LIPITOR 20MG PATIENT ALREADY TAKING PLAVIX AND METOPROLOL. DAPT OF XARELTO AND PLAVIX OK BY DR. COMER. BABAR/ARB NOT PRESCRIBED DUE TO PATIENT'S SOFT BP DURING ADMISSION. PER TRISTA MCKEON, WILL ADDRESS IN OUTPATIENT SETTING. ALL NEW PRESCRIPTIONS SENT TO [facility] IN [place]. SPOKE TO PATIENT AND PATIENT'S SISTER. BOTH HAD NO QUESTIONS AT THIS TIME. -JOJO WEBER, PHARMD
--- NOTE | 2020-11-06 11:10 | [facility].DCSUM ---
General - General Admission date:: 10/25/20 <Tutu Canseco - 01/03/21 13:32> 10/25/20 <Veronica Justin - 11/06/20 12:21> Discharge date: 11/04/20 <NhanVeronica - 11/06/20 12:21> HPI HPI: Ms. Hassan is a 75-year-old female who presented to [facility] with shortness of breath, weakness, and some altered mental status.Family states that she has been confused with a cough congestion shortness of breath and minimal p.o. intake. O2 sats at home were on 80%. She was using her 's oxygen as needed. She is noted to have been vaccinated against COVID-19. She had talked with her PCP and was started on cefdinir 3 days ago. She did not get any better and thus her family brought her to the ER via ambulance. In the emergency room, she was started on Rocephin and Zithromax. Patient has a history of heart disease, Arthritis, Anxiety, Depression, and irregular heartbeat. She has been both on Cardizem and metoprolol. Chest x-ray on admission suggested right basilar pneumonia. Lactate originally was at 2.4 and is now 2. Upon awakening this morning patient describes anterior chest discomfort with shortness of breath. She could feel her heart pounding. She was given 120 mg of Cardizem p.o. The chest pain did continue. Monitor showing atrial fib with rapid ventricular response in the 150s. She was given her metoprolol and 1/2 inch of Nitropaste was placed on her chest. She declined the Ativan because she says it knocks her out. Her chest pain did improve. <NhanVeronica - 11/06/20 12:21> Hospital Course Hospital Course: The patient's chest x-ray showed a pneumonia. She was continued on antibiotics and started on duo nebs. Cardiology was consulted due to her atrial fibrillation and she was continued on metoprolol and Cardizem. Cardiology saw the patient and she had no improvement in her rapid ventricular response with extra doses of diltiazem, but her symptoms did not improve with metoprolol and nitroglycerin paste. She converted back to sinus rhythm. Cardiac enzymes were ordered as was an echo and a CTA to rule out a PE. The patient's troponin was elevated. Her echo showed an EF of 55% and a right ventricular systolic pressure of 51 mmHg. Her chest CTA showed moderate to severe acute airspace disease throughout the right lung worse in the right lower lobe compatible with infectious pneumonia. There was a small amount of debris within the central airways which could be due to aspiration. There was no PE. She continued with intermittent chest discomfort. Her potassium was low and was replaced. She had a heart cath showing critical two-vessel coronary disease involving the [place] circumflex artery and the [place] right coronary. She had 3 stents placed and was started on dual antiplatelet therapy. She was started on Lovenox for anticoagulation due to her atrial fibrillation. She denied any chest pain after her cath and her breathing did improve. Her blood cultures returned with no growth. She did go back into A. fib with rapid ventricular response on 10/28/2020. She also had some vomiting. She was given a diltiazem bolus and started on a diltiazem drip. She was maxed out on the diltiazem drip and her heart rate was still between 150 and 200, therefore she was given an esmolol bolus and started on esmolol drip. She was still tachycardic in the 140s on diltiazem and esmolol, but got hypotensive when the esmolol was titrated higher. She was therefore given an amiodarone bolus and started on an amiodarone drip. She then converted back to sinus rhythm. Her diltiazem drip was discontinued but she was continued on the esmolol and amiodarone drip. She was switched to amiodarone 400 mg twice daily and was continued on metoprolol 100 mg twice a day. Her esmolol and amiodarone drips were discontinued. She continued to feel poorly and was vomiting. She denied any chest pain or shortness of breath. She did co
== END 2020-11-04 13:55 | disposition home or self-care (01) | DRG 981 ==
LOC: ER 19:47 → 2ND 21:37
PROVIDERS: Family Medicine; Internal Medicine; Nurse Practitioner Family; Surgery; Admitting Provider Family Medicine; Emergency Provider Emergency Medicine; PCP Nurse Practitioner; Visit Provider Family Medicine
PROC: 4A023N7 Measurement of Cardiac Sampling and Pressure, Left Heart, Percutaneous Approach (ICD-10-PCS; principal; 2020-10-27 13:00)
PROC: 0DJ08ZZ Inspection of Upper Intestinal Tract, Via Natural or Artificial Opening Endoscopic (ICD-10-PCS; CPT 43235; principal; 2020-10-29 12:25)
DX: J18.9 Pneumonia, unspecified organism (principal); J96.02 Acute respiratory failure with hypercapnia; I21.4 Non-ST elevation (NSTEMI) myocardial infarction; E43 Unspecified severe protein-calorie malnutrition; J44.0 Chronic obstructive pulmonary disease with (acute) lower respiratory infection; I25.110 Atherosclerotic heart disease of native coronary artery with unstable angina pectoris; T82.855A Stenosis of coronary artery stent, initial encounter; B37.81 Candidal esophagitis; I25.710 Atherosclerosis of autologous vein coronary artery bypass graft(s) with unstable angina pectoris; Z68.1 Body mass index [BMI] 19.9 or less, adult; Z20.822 Contact with and (suspected) exposure to COVID-19; Z95.1 Presence of aortocoronary bypass graft; I48.91 Unspecified atrial fibrillation; I10 Essential (primary) hypertension; M19.90 Unspecified osteoarthritis, unspecified site; E03.9 Hypothyroidism, unspecified; F17.210 Nicotine dependence, cigarettes, uncomplicated; Z79.02 Long term (current) use of antithrombotics/antiplatelets; Y83.1 Surgical operation with implant of artificial internal device as the cause of abnormal reaction of the patient, or of later complication, without mention of misadventure at the time of the procedure; T18.128A Food in esophagus causing other injury, initial encounter; X58.XXXA Exposure to other specified factors, initial encounter; E87.6 Hypokalemia; E83.42 Hypomagnesemia; K59.00 Constipation, unspecified
CPT/HCPCS: 43247; 36415; 71045; 71275; 74220; 80048; 80053; 80061; 81001; 83605; 83735; 84443; 84484; 85007; 85025; 87040; 87070; 87205; 92928; 93005; 93306; 93459; 94640; 94760; 94761; 96365; 96375; 97110; 97116; 97162; 97166; 97530; 97535; 99152; 99153; 99284; C1725; C1769; C1876; C1894; C9600; J0282; J0456; J0692; J1644; J2405; J7060; Q9967; U0003